=== PATIENT | female | born 1995 | race Caucasian/White ===

== ENCOUNTER 2020-12-27 18:24 | Emergency (ER) | payer OTHER, SELFPAY ==
[2020-12-27 18:32] VITALS: BP 133/80; PULSE 82; RESP 12; TEMP 36.7; O2SAT 100
--- NOTE | 2020-12-27 18:35 | ED.FEMALEGU ---
HPI - Female Genitourinary General Chief complaint: Urogenital-Female Stated complaint: UTI Source: patient Mode of arrival: ambulatory Limitations: no limitations History of Present Illness HPI Narrative: Patient is a 25 year old female who presents with complaints of UTI. She reports dysuria, frequency and urgency x1 day. She reports history of UTI in the past. Patient has no other significant medical history. She denies taking any wdpq-hhl-irwrsyk medications prior to arrival. MD elicited complaint: UTI Related Data Home Medications Medication Instructions Recorded Confirmed Viberzi 12/27/20 citalopram 12/27/20 Allergies Allergy/AdvReac Type Severity Reaction Status Date / Time Sulfa (Sulfonamide Allergy Unknown Verified 12/27/20 18:40 Antibiotics) Review of Systems Review of Systems: Narrative: CONSTITUTIONAL: Denies fever, chills, or sweats. EYES: Denies visual changes, redness, or discharge. ENT: Denies rhinorrhea, congestion, sore throat, or otalgia. CARDIOVASCULAR: Denies chest pain, palpitations, or edema. RESPIRATORY: Denies cough or dyspnea. GASTROINTESTINAL: Denies abdominal pain, nausea, vomiting, or diarrhea. GENITOURINARY: Reports dysuria, urgency and frequency SKIN: Denies rash or itching. MUSCULOSKELETAL: Denies back pain, joint pain, or myalgia. NEUROLOGIC: Denies headache, numbness, dizziness, or weakness. PSYCHIATRIC: Denies anxiety or depression. [facility] Past Medical History Medical History Anxiety Depression Social History Social History (Updated 12/27/20 @ 19:48 by JUANY Umaña) Smoking status: Never smoker Alcohol intake: current Alcohol use details: Occasional Substance use: never Living arrangements: with family Comments At the time of signature, I have reviewed and agree with nursing past medical, surgical, social, and family history unless otherwise noted. Please see nursing chart for further information. There is no relevant family history pertinent to the presenting complaint. Exam Narrative: Exam Narrative: GENERAL: Well-appearing, well-nourished, and in no acute distress. HEAD: Normocephalic, atraumatic. EYES: EOMI. No redness or drainage. Conjunctiva are normal. ENT: Mucous membranes pink and moist. CHEST: No respiratory distress. HEART: Regular rate and rhythm. EXTREMITIES: Normal range of motion. No edema. SKIN: Warm, dry, no rash. NEURO: No focal deficits. Alert and oriented x3. Gait steady. PSYCH: Normal affect. No signs of depression or anxiety. MDM - Female Genitourinary MDM Narrative Medical decision making narrative: Patient is afebrile nontoxic in appearance. Patient has blood and leukocytes in urine. Patient to be treated for UTI at this time with antibiotics. Discussed plan of care with patient. Discussed follow-up. Patient is stable for discharge home with outpatient follow-up as discussed. Differential Diagnosis Differential diagnosis: Likely urinary tract infection, bacterial vaginosis, vaginitis, cystitis and dysmenorrhea Critical Care Time Critical Care Time Critical Care Time: No Discharge Plan Discharge Clinical Impression: Urinary tract infection Qualifiers: Urinary tract infection type: site unspecified Hematuria presence: with hematuria Qualified Code(s): N39.0 - Urinary tract infection, site not specified Patient Disposition: Home, Self-Care Condition: Stable Instructions: Antibiotic Form, Urinary Tract Infection in Women (ED) Additional Instructions: Take antibiotics as directed. Stay well-hydrated. If you develop fever, chills, nausea, vomiting or abdominal pain, please go to the emergency department for further evaluation, otherwise follow-up with your doctor in 5 to 7 days as needed. Prescriptions: New nitrofurantoin macrocrystal 100 mg capsule 100 mg PO BID 5 Days Qty: 10 RF: 5 No Action Suha RF:
== END 2020-12-27 18:57 | disposition home or self-care (01) ==
PROVIDERS: Emergency Provider Nurse Practitioner; PCP Physician Assistant
DX: N39.0 Urinary tract infection, site not specified (principal)
CPT/HCPCS: 81003; 87077; 87086; 87088; 87186; 99213; G0463

== ENCOUNTER 2021-05-26 18:35 | Emergency (ER) | payer OTHER, SELFPAY ==
--- NOTE | 2021-05-26 18:41 | ED.FEMALEGU ---
HPI - Female Genitourinary General Chief complaint: Urogenital-Female Stated complaint: pos uti Time Seen by Provider: 05/26/21 18:41 Source: patient and RN notes reviewed Mode of arrival: ambulatory Limitations: no limitations History of Present Illness HPI Narrative: narda is a 25 year old female who ambulated into [facility]. Patient states she had a telehealth visit 2 weeks ago for a UTI. She was treated with Macrobid for 5 days. Patient states doctor wanted her to be seen for a urinalysis to make sure infection is gone. She states she has had 2 UTI's this year. She states she has some urinary urgency.. She took entire course of antibiotics. MD elicited complaint: dysuria Related Data Home Medications Medication Instructions Recorded Confirmed L norgest/e.estradiol-e.estrad 1 tablet PO DAILY 05/26/21 05/26/21 [Simpesse] citalopram 10 mg PO DAILY 05/26/21 05/26/21 citalopram 20 mg PO DAILY 05/26/21 05/26/21 eluxadoline [Viberzi] 100 mg PO DAILY 05/26/21 05/26/21 Allergies Allergy/AdvReac Type Severity Reaction Status Date / Time Sulfa (Sulfonamide Allergy Unknown Verified 05/26/21 18:44 Antibiotics) Review of Systems Review of Systems: CONSTITUTIONAL: Denies body aches, fever, chills, or sweats. EYES: Denies visual changes, redness, or discharge. ENT: Denies rhinorrhea, congestion, sore throat, or otalgia. CARDIOVASCULAR: Denies chest pain, palpitations, or edema. RESPIRATORY: Denies cough or dyspnea. GASTROINTESTINAL: Denies abdominal pain, nausea, vomiting, or diarrhea. GENITOURINARY: Denies dysuria or hematuria.+urgency SKIN: Denies rash, itching, or wounds. MUSCULOSKELETAL: Denies back pain, joint pain, or myalgia. NEUROLOGIC: Denies headache, numbness, tingling, or weakness. PSYCH: Denies depression or anxiety. All systems reviewed & are unremarkable except as noted in HPI and below PMFSH Past Medical History Medical History Anxiety Depression Social History Social History Smoking status: Never smoker Alcohol intake: current Alcohol use details: Occasional Substance use: never Comments At time of signature, I have reviewed and agree with nursing past medical, surgical, social and family history unless otherwise noted. Please see nursing chart for further information. There is no relevant family history pertinent to the presenting complaint Exam Narrative: GENERAL: Well-appearing, well-nourished, and in no acute distress. HEAD: Normocephalic, atraumatic. EYES: EOMI. No redness or drainage. Conjunctivae normal. ENT: Mucous membranes pink and moist. Nares clear. No rhinorrhea. TMs normal bilaterally. Throat normal. Uvula midline. NECK: Normal AROM. Supple. No lymphadenopathy. CHEST: No respiratory distress. MUSCULOSKELETAL: No bony tenderness. negative CVA tenderness EXTREMITIES: Normal range of motion. No edema. SKIN: Warm, dry, no rash. Capillary refill normal. Normal skin turgor. NEURO: No focal deficits. Alert and oriented x3. Gait steady. PSYCH: Normal affect. No signs of depression or anxiety. Course Vital Signs Vital signs: Vital Signs Temperature 36.8 C 05/26/21 18:43 Pulse Rate 84 05/26/21 18:43 Respiratory Rate 16 05/26/21 18:43 Blood Pressure 123/81 05/26/21 18:43 Pulse Oximetry 100 05/26/21 18:43 Temperature 36.8 C 05/26/21 18:44 Pulse Rate 84 05/26/21 18:44 Respiratory Rate 16 05/26/21 18:44 Blood Pressure 123/81 05/26/21 18:44 Pulse Oximetry 100 05/26/21 18:44 Reviewed MDM - Female Genitourinary MDM Narrative Medical decision making narrative: Patient's urinalysis shows trace leukocytes and trace blood. Patient had prior therapy 2 weeks ago of Macrobid 100 mg daily for 5 days. Patient continues to have urinary urgency. Patient will be treated with Cipro 500 mg twice daily for 7 days base
[2021-05-26 18:43] VITALS: BP 123/81; PULSE 84; RESP 16; TEMP 36.8; O2SAT 100
[2021-05-26 18:44] VITALS: BP 123/81; PULSE 84; RESP 16; TEMP 36.8; O2SAT 100
== END 2021-05-26 19:02 | disposition home or self-care (01) ==
PROVIDERS: Emergency Provider Nurse Practitioner Family; PCP Physician Assistant
DX: N39.0 Urinary tract infection, site not specified (principal); F41.9 Anxiety disorder, unspecified; F32.A Depression, unspecified
CPT/HCPCS: 81003; 87086; 87088; 99213; G0463

== ENCOUNTER 2022-10-17 08:11 | Outpatient (CLI) | payer OTHER, SELFPAY ==
--- NOTE | ~2022-10-17 | US_ITS ---
Thyroid ultrasound. Clinical History: Goiter Findings: Real-time sonography of the thyroid gland was performed. The right lobe measures 4.3 x 1.7 x 1.5 cm. The left lobe measures 3.7 x 1.5 x 1.1 cm. The isthmus is 2 mm in AP diameter. There is a 9 mm hyperechoic solid nodule at the right midpole. Impression: 9 mm hyperechoic right midpole nodule. No further follow-up required. Reviewed, dictated and finalized at location . Impression: 9 mm hyperechoic right midpole nodule. No further follow-up required.
== END 2022-10-17 08:12 | disposition home or self-care (01) ==
PROVIDERS: PCP Physician Assistant; Visit Provider Internal Medicine Endocrinology, Diabetes & Metabolism
DX: E04.9 Nontoxic goiter, unspecified (principal)
CPT/HCPCS: 76536

== ENCOUNTER 2023-01-26 15:10 | Emergency (ER) | payer OTHER, SELFPAY ==
[2023-01-26] VITALS (14 sets, daily range): BP systolic 104–135; BP diastolic 62–85; PULSE 62–102; RESP 11–24; TEMP 36.3; O2SAT 99–100
--- NOTE | 2023-01-26 19:01 | ED.HA ---
HPI - Headache General Chief Complaint: Headache Stated Complaint: headache Time Seen by Provider: 01/26/23 18:56 Source: patient Mode of arrival: ambulatory Limitations: no limitations History of Present Illness HPI Narrative: Patient is a 27-year-old female who presents ED with report of headache. Patient reports having a constant mild headache for the last 2 weeks. She states at times it becomes worse and becomes better. Denies any known triggers or aggravating factors to the pain. She was seen at an urgent care yesterday and told to take Tylenol and naproxen and come to the ED if pain was still present in the morning. Patient has not tried anything further for the pain today. Patient denies any nausea, vomiting, photophobia, phonophobia, fevers, dizziness, lightheadedness, focal weakness or numbness. Patient denies known history of migraines. Related Data Home Medications Medication Instructions Recorded Confirmed citalopram 10 mg tablet 10 mg PO DAILY 05/26/21 02/21/22 citalopram 20 mg tablet 20 mg PO DAILY 05/26/21 02/21/22 Allergies Allergy/AdvReac Type Severity Reaction Status Date / Time Sulfa (Sulfonamide Allergy Unknown Verified 01/26/23 19:04 Antibiotics) Review of Systems Review of Systems: CONSTITUTIONAL: Denies fever, chills, or sweats. EYES: Denies visual changes. CARDIOVASCULAR: Denies chest pain. RESPIRATORY: Denies dyspnea. GASTROINTESTINAL: Denies abdominal pain, nausea, vomiting. MUSCULOSKELETAL: Denies back pain, joint pain, or myalgia. NEUROLOGIC: See HPI. 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 HEAD: Normocephalic, atraumatic. EYES: PERRL/EOMI, conjunctivae clear bilaterally. No nystagmus. NECK: Supple. No adenopathy, no masses. No meningeal signs. RESPIRATORY: Airway patent, respirations nonlabored. Clear to auscultation bilaterally, no rales, rhonchi, wheezing. CARDIOVASCULAR: Regular rate and rhythm without murmurs, rubs, or gallops. Radial pulses 2+ and equal bilaterally. MUSCULOSKELETAL: Moves all extremities. Strength/ROM intact without gross deformities or TTP. SKIN: Warm, dry, normal color. No rashes. NEURO: A&O X3. Speech clear. Follows commands. CN II-XII intact. Sensation grossly intact. Steady gait. No ataxic movements. Strength 5/5 in upper and lower extremities bilaterally. Nvbm-xv-xkwd. No pronator drift. Equal photographic equipment assembler strength bilaterally. PSYCHIATRIC: Appropriate mood and affect. Normal interaction. Course Vital Signs Vital signs: Vital Signs Temperature 97.3 F L 01/26/23 15:14 Pulse Rate 102 H 01/26/23 15:14 Respiratory Rate 16 01/26/23 15:14 Blood Pressure 135/85 01/26/23 15:14 Pulse Oximetry 100 01/26/23 15:14 Oxygen Delivery Room Air 01/26/23 15:14 Temperature 97.3 F L 01/26/23 15:14 Pulse Rate 65 01/26/23 21:08 Respiratory Rate 18 01/26/23 21:08 Blood Pressure 117/81 01/26/23 21:08 Pulse Oximetry 99 01/26/23 21:08 Oxygen Delivery Room A
[2023-01-26] MEDS: SODIUM CHLORIDE 0.9% IV 1,000 ML 999 ML IV CONT (19:45)
[2023-01-26] MEDS: diphenhydrAMINE HCl INJ 50 MG/ML VIAL 25 MG IV PUSH (19:47)
[2023-01-26] MEDS: KETOROLAC 30 MG/ML VIAL (*BKC) IV PUSH (19:47)
[2023-01-26] MEDS: METOCLOPRAMIDE HCL INJ 10 MG/2 ML VIAL IV PUSH (19:48)
[2023-01-26] MEDS: ACETAMINOPHEN 500 MG TABLET 1000 MG PO (19:53)
== END 2023-01-26 21:11 | disposition home or self-care (01) ==
PROVIDERS: Emergency Provider Physician Assistant; PCP Physician Assistant
DX: G43.909 Migraine, unspecified, not intractable, without status migrainosus (principal); K58.9 Irritable bowel syndrome, unspecified; E28.2 Polycystic ovarian syndrome; F41.9 Anxiety disorder, unspecified; F32.A Depression, unspecified
CPT/HCPCS: 81025; 96361; 96374; 96375; 99284; A9270; J1100; J1200; J1885; J2765; J7030

== ENCOUNTER 2023-03-21 13:28 | Outpatient (CLI) | payer OTHER, SELFPAY ==
--- NOTE | ~2023-03-21 | US_ITS ---
US breast LT limited INDICATION: Palpable left breast lump TECHNIQUE: Dedicated Limited left breast ultrasound COMPARISON: No prior studies for comparison. FINDINGS: The left breast is composed of normal heterogeneous echotexture without focal solid or cyst ic mass. IMPRESSION: 1: Normal left breast ultrasound. BI-RADS CATEGORY 1 - NEGATIVE Reviewed, dictated and finalized at location A.
== END 2023-03-21 13:29 | disposition home or self-care (01) ==
PROVIDERS: Visit Provider Obstetrics & Gynecology
DX: N63.25 Unspecified lump in the left breast, overlapping quadrants (principal)
CPT/HCPCS: 76642

== ENCOUNTER 2024-02-10 08:06 | Outpatient (CLI) | payer OTHER, SELFPAY ==
[2024-02-10 08:31] LABS: Glucose Point of Care 98 mg/dl (65-105)
[2024-02-10 15:44] LABS: Glucose 3 Hour Gest 116 mg/dL (>/=140)
[2024-02-10 15:44] LABS: Glucose 1 Hour Gest 127 mg/dL (>/=180)
[2024-02-10 15:44] LABS: Glucose 2 Hour Gest 117 mg/dL (>/= 155)
== END 2024-02-10 08:07 | disposition home or self-care (01) ==
LOC: ANHGOSHLAB 08:07
PROVIDERS: PCP Physician Assistant; Visit Provider Obstetrics & Gynecology
DX: R73.09 Other abnormal glucose (principal)
CPT/HCPCS: 36415; 82948; 82951; 82952

== ENCOUNTER 2024-02-28 09:03 | Observation (INO) | payer OTHER, SELFPAY ==
[2024-02-28] VITALS (7 sets, daily range): BP systolic 112–121; BP diastolic 64–77; PULSE 67–87; BMI 47.3
--- NOTE | ~2024-02-28 | US_ITS ---
EXAMINATION: US OB limited w BPP DATE: 02/28/2024 11:29 INDICATION: Status post fall on abdomen TECHNIQUE: Real-time pelvic ultrasound was performed. The interpreting radiologist was not present fo r the study. COMPARISON: None. FINDINGS: There is a single living fetus in vertex presentation. The placenta is anterior. cardiac activ ity and movement are demonstrated. heart rate is beats per minute (bpm). Biophysical profile performed by the technologist: breathing (30 sec sustained breathing in 30 minutes): 2 out of 2 movement (3 gross body movements in 30 minutes): 2 out of 2 tone (one episode of ncttvwl-njlxwzcbs-wchtplk limb movement): 2 out of 2 Amniotic fluid pocket (2 cm): 2 out of 2 Total score: 8 out of 8 IMPRESSION: 1. Single living intrauterine in vertex presentation with heart rate of 141 bpm. 2. Normal placenta. 3. Biophysical profile 8 out of 8. Reviewed, dictated and finalized at location B.
--- NOTE | 2024-02-28 09:31 | OBADM ---
This patient, Barbara Madera, admitted to the OB room 112 for observation after a fall. Patient/family oriented to hospital policies and general routines including ID bracelet, bed and alarms, visiting hours, pain management, procedures, bathroom and other care routines, personal items, smoking policy, room service/diet, and visiting hours. Patient/Family are encouraged to report perceived risks to care and to ask questions if they do not understand what they are told or what they should do.
--- NOTE | 2024-02-28 17:31 | PC.NURSE ---
1635--Reported labs, BPP and tracing to Dr. Lundy. DC orders given.
--- NOTE | 2024-03-30 09:56 | PM.OBTRLD ---
OB - Triage/Final Diagnosis Visit Information Comments/Additional reasons for admission: I have assessed the risk for this patient, Barbara Madera, and determined that she would benefit from observation care. Evaluation Laboratory results: Laboratory Tests 02/28/24 11:39 KB Hemoglobin Negative Comments: No abdominal trauma with fall. Final Diagnosis (1) Status post fall: Code(s): Z91.81 - History of falling Status: Acute
== END 2024-02-28 16:45 | disposition home or self-care (01) ==
PROVIDERS: Admitting Provider Obstetrics & Gynecology; PCP Physician Assistant; Visit Provider Obstetrics & Gynecology
DX: Z04.3 Encounter for examination and observation following other accident (principal); Z3A.31 31 weeks gestation of pregnancy; W19.XXXA Unspecified fall, initial encounter
CPT/HCPCS: 36415; 76815; 76819; 85460; G0378; G0379

== ENCOUNTER 2024-04-09 10:53 | Outpatient (CLI) | payer OTHER, SELFPAY ==
[2024-04-09] VITALS (10 sets, daily range): BP systolic 114–132; BP diastolic 63–78; PULSE 62–80; BMI 47.3
[2024-04-09 12:09] LABS: Basophils Percent Auto 0.4 % (0.2-1.2); Eosinophils Absolute Auto 0.1 K/mm3 (0-0.3); Eosinophils Percent Auto 0.7 % (0-4.4); Hematocrit 40.9 % (37.0-47.0); Hemoglobin 13.5 g/dL (12.0-15.0); Immature Granulocyte Absolute 0.07 K/mm3 (0.00-0.031); Immature Granulocyte Percent A 0.6 % (0-0.5); Lymphocytes Absolute Auto 1.37 K/mm3 (0.9-3.2); Lymphocytes Percent Auto 12.7 % (18.3-44.2); Mean Corpuscular Hemoglobin 29.6 pg (26-34); Mean Corpuscular Volume 89.7 fl (80-100); Mean Platelet Volume 9.7 fl (7.4-10.4); Monocytes Absolute Auto 0.7 K/mm3 (0.1-0.6); Monocytes Percent Auto 6.8 % (2.6-8.5); Neutrophils Absolute Auto 8.5 K/mm3 (1.3-6.7); Neutrophils Percent Auto 78.8 % (45.5-73.1); Platelet Count Result 229 k/mm3 (150-375); Red Blood Count 4.56 M/mm3 (4.2-5.4); Red Cell Distribution Width 13.8 % (11.5-14.5); White Blood Count 10.8 K/mm3 (4.5-10.0)
[2024-04-09 12:13] LABS: Add Urine Microscopic? YES; Appearance Urine Turbid (Clear); Bacteria Urine 2+ /hpf; Bilirubin Urine 1+ (Negative); Blood Urine Negative (Negative); Color Urine Dark Yellow (Yellow); Glucose Urine UA Negative (Negative); Ketones Urine Trace mg/dL (Negative); Leukocyte Esterase Ur 3+ LEU/UL (Negative); Nitrate Urine Negative (Negative); Protein Urine Trace mg/dL (Negative); Specific Grav Ur 1.025 (1.001-1.035); Squamous Epithelial Cell Urine Many /hpf (Few); Urobilinogen Urine 0.2 mg/dL (<2.0); WBC Urine 51-100 /hpf (0-3); pH Urine 5.5 (5.0-9.0)
[2024-04-09 12:19] LABS: Creatinine Urine 227.1 mg/dL
[2024-04-09 12:19] LABS: Alanine Aminotransferase 11 U/L (6-35); Albumin Level 3.6 g/dL (3.5-5.1); Alkaline Phosphatase 143 U/L (38-126); Anion Gap 9 mmol/L (4-12); Aspartate Amino Transferase 20 U/L (14-36); Bilirubin,Total 0.3 mg/dL (0.2-1.3); Blood Urea Nitrogen 7 mg/dL (7-17); Calcium 9.2 mg/dL (8.4-10.2); Carbon Dioxide 20 mmol/L (22-30); Chloride 104 mmol/L (98-107); Estimated Glomerular Filt Rate > 60; Glucose 75 mg/dL (65-110); Potassium 3.9 mmol/L (3.4-5.0); Sodium 133 mmol/L (137-145); Uric Acid 5.1 mg/dL (2.5-7.5)
[2024-04-09 12:38] LABS: Total Protein Urine Random < 5 mg/dL
[2024-04-09 12:39] LABS: Ur Ttl Prot Creatinine Ratio < 0.02 mg/mg (0-0.20)
--- NOTE | 2024-04-09 12:50 | PC.NURSE ---
Called Dr. Mcgee with lab results, and BPs. Orders received.
== END 2024-04-09 13:22 | disposition home or self-care (01) ==
LOC: ANHOBOP 11:10 → ANHOBPP 11:10
PROVIDERS: Visit Provider Obstetrics & Gynecology
DX: O13.9 Gestational [pregnancy-induced] hypertension without significant proteinuria, unspecified trimester (principal); Z3A.00 Weeks of gestation of pregnancy not specified
CPT/HCPCS: 36415; 59025; 80053; 81001; 82570; 84156; 84550; 85025; 87086; 99199

== ENCOUNTER 2024-04-22 17:08 | Inpatient (IN) | payer OTHER, SELFPAY ==
[2024-04-22] VITALS (10 sets, daily range): BP systolic 103–129; BP diastolic 71–91; PULSE 82–104; TEMP 36.4–36.6; BMI 47.3; BMI 48.0
--- NOTE | 2024-04-22 18:00 | WPDANESEPP ---
Anes - Eval Pre Procedure Procedure: labor epidural Date/Time: 04/22/24 18:00 Surgeon: dangelo Preop Diagnosis: pain during labor Pre Op Diagnosis: IOL Patient Data Age: 28 Gender: F Height: 1.68 m Weight: 133 kg Allergies Allergy/AdvReac Type Severity Reaction Status Date / Time Sulfa (Sulfonamide Allergy Unknown Verified 04/16/24 10:03 Antibiotics) Home Medications Medication Instructions Recorded Confirmed Type citalopram 10 mg tablet 10 mg PO DAILY 05/26/21 04/16/24 History citalopram 20 mg tablet 20 mg PO DAILY 05/26/21 04/16/24 History levothyroxine 62.5 mcg capsule 62.5 mcg PO DAILY #90 caps 02/06/24 04/16/24 Rx aspirin 81 mg chewable tablet 81 mg PO DAILY 03/19/24 04/16/24 History vits no.124-ferrous fum 1 tablet PO DAILY 03/19/24 04/16/24 History 27 mg iron-folic acid 800 mcg tablet ( Vitamin) cholecalciferol (vitamin D3) 125 125 mcg PO DAILY 03/31/24 04/16/24 History mcg (5,000 unit) tablet (Vitamin D3) Patient hx anesthesia problems: none Family hx anesthesia problems: none Results Review: All pre-operative results and documents have been reviewed as part of the pre-operative evaluation. [facility], LAT[facility] Past Medical History Medical History (Updated 04/22/24 @ 18:01 by Stacy Singh CRNA) Anxiety Colonoscopy planned Depression History of hysterosalpingogram History of IBS History of PCOS Morbid obesity with BMI of 45.0-49.9, adult Normal endoscopy Family History Family History Grandparent Diabetes mellitus Malignant neoplasm of prostate Mother Crohn's disease Social History Social History Smoking status: Never smoker Alcohol intake: never Substance use: never Substance use type: does not use Do You Feel Safe in your Home?: Yes Lack of Transportation: No Lack of Food: Never True Current Housing: I Have Housing Concerned About Future Housing: No Difficulty Paying Gas/Electric Bills: No Difficulty Paying for Meds: No Currently Unemployed: No Education: Master's Degree or Higher Difficulty w/ Childcare or Family Care: No Living arrangements: with family Occupation/Education: occupation 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
--- NOTE | 2024-04-22 18:27 | LDADM ---
This patient, Barbara Madera, was admitted to Labor/Delivery/Recovery 108 on 04/22/24 at 17:08. Plans for labor, pain management and were discussed with patient. Patient/family oriented to hospital policies and general routines including ID bracelet, bed and alarms, visiting hours, pain management, procedures, bathroom and other care routines, personal items, smoking policy, room service/diet and guest tray routines, security routines, and visiting hours. Patient/Family are encouraged to report perceived risks to care and to ask questions if they do not understand what they are told or what they should do. See OBIX for further documentation.
[2024-04-22] MEDS: DINOPROSTONE 10 MG VAG INSERT VAGINAL (19:06)
[2024-04-22 19:13] LABS: Basophils Percent Auto 0.2 % (0.2-1.2); Eosinophils Absolute Auto 0.1 K/mm3 (0-0.3); Hematocrit 40.6 % (37.0-47.0); Hemoglobin 13.7 g/dL (12.0-15.0); Immature Granulocyte Absolute 0.07 K/mm3 (0.00-0.031); Immature Granulocyte Percent A 0.7 % (0-0.5); Lymphocytes Absolute Auto 1.76 K/mm3 (0.9-3.2); Lymphocytes Percent Auto 18.2 % (18.3-44.2); Mean Corpuscular HGB Conc 33.7 g/dl (32-36); Mean Corpuscular Hemoglobin 30.4 pg (26-34); Mean Platelet Volume 10.1 fl (7.4-10.4); Monocytes Absolute Auto 0.8 K/mm3 (0.1-0.6); Neutrophils Percent Auto 71.9 % (45.5-73.1); Platelet Count Result 255 k/mm3 (150-375); Red Blood Count 4.51 M/mm3 (4.2-5.4); Red Cell Distribution Width 13.8 % (11.5-14.5); White Blood Count 9.7 K/mm3 (4.5-10.0)
[2024-04-22 20:00] LABS: Rapid Plasma Reagin Non-Reactive (NonReactive)
[2024-04-22 20:06] LABS: HIV 1/2 Ab P24 Ag Result Negative (Negative)
[2024-04-23] VITALS (175 sets, daily range): BP systolic 105–153; BP diastolic 60–114; PULSE 55–126; RESP 18; TEMP 36.3–37.8; O2SAT 83–100
[2024-04-23] MEDS: LACTATED RINGERS 1,000 ML 125 ML IV CONT ×3 (07:31→11:23)
[2024-04-23] MEDS: OXYTOCIN 30 UNITS/NS 500 ML 30 UNITS/500 ML BAG 6 UNITS IV CONT (07:31)
--- NOTE | 2024-04-23 07:31 | PM.IMHP ---
H&P: HPI History of Present Illness Date/Time: 04/23/24 07:15 Chief Complaint: induction of labor Narrative: Barbara is a 28yo @ 39.0wks who presents for elective IOL. She reports good movement. No vaginal bleeding or leakage of fluid. She has had regular care with co-management with [facility]. Her is complicated by: - Obesity--- (pre preg BMI 47), early glucose normal, MFM for anatomy, ASA 81mg - Hypothyroidism--- Levo 50mcg, thyroid studies qTrimester - Anxiety/depression-- celexa 30mg - Elevated 1 hour; normal 3 hour Review of Systems Constitutional: Constitutional: Denies chills, Denies fever(s) and Denies headache(s) Eyes: Eyes: Denies change in vision ENT: Denies headache(s) Cardiovascular: Cardiovascular: Denies chest pain and Denies dyspnea Respiratory: Respiratory: Denies dyspnea Genitourinary: Genitourinary: Denies abnormal vaginal bleeding and Denies vaginal discharge Neurologic: Denies headache(s) Psychiatric: Psychiatric: Denies anxiety and Denies depression [facility] Past Medical History Medical History (Updated 04/22/24 @ 20:35 by Karen Mcgee MD) Anxiety Colonoscopy planned Depression History of hysterosalpingogram History of IBS History of PCOS Morbid obesity with BMI of 45.0-49.9, adult Normal endoscopy Family History Family History Grandparent Diabetes mellitus Malignant neoplasm of prostate Mother Crohn's disease Social History Social History Smoking status: Never smoker Alcohol intake: never Substance use: never Substance use type: does not use Do You Feel Safe in your Home?: Yes Lack of Transportation: No Lack of Food: Never True Current Housing: I Have Housing Concerned About Future Housing: No Difficulty Paying Gas/Electric Bills: No Difficulty Paying for Meds: No Currently Unemployed: No Education: Master's Degree or Higher Difficulty w/ Childcare or Family Care: No Living arrangements: with family Occupation/Education: occupation 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 Gender identity (if verbalized by the patient): Female Sexual Orientation (if Verbalized by the Patient): Straight or Heterosexual Spiritual care concerns: No Meds Home Medications and Allergies Home Medications Medication Instructions Recorded Confirmed Type citalopram 10 mg tablet 10 mg PO DAILY 05/26/21 04/16/24 History citalopram 20 mg tablet 20 mg PO DAILY 05/26/21 04/16/24 History levothyroxine 62.5 mcg capsule 62.5 mcg PO DAILY #90 caps 02/06/24 04/16/24 Rx aspirin 81 mg chewable tablet 81 mg PO DAILY 03/19/24 04/16/24 History vits no.124-ferrous fum 1 tablet PO DAILY 03/19/24 04/16/24 History 27 mg iron-folic acid 800 mcg tablet ( Vitamin) cholecalciferol (vitamin D3) 125 125 mcg PO DAILY 03/31/24 04/16/24 History mcg (5,000 unit) tablet (Vitamin D3) Allergies Allergy/AdvReac Type Severity Reaction Status Date / Time Sulfa (Sulfonamide Allergy Unknown Verified 04/16/24 10:03 Antibiotics) Vital Signs Vital Signs - 24 hr 04/22/24 19:31 04/22/24 19:46 04/22/24 20:01 Pulse Rate 97 101 H 104 H Blood Pressure 117/90 108/86 112/87 04/22/24 20:17 04/22/24 20:31 Pulse Rate 101 H 97 Blood Pressure 103/81 115/87 Exam Const: General: cooperative, no acute distress and obese Nutritional Appearance: obese Orientation/consciousness: patient oriented x3 Resp: Effort & Inspection: normal respiratory effort Cardio: Rate: regular rate GI: GI Palp: No abdominal tenderness : Other: FHT's: 130's/ mod tatiana/ + accels/ no decels - cat 1 TOCO: ctxs q_min Cervix: 3/70/-2, ant Membranes: AROM, clear 0725 Presentation: cephalic Skin: General skin exam: normal color Neuro: General: patient oriented x3 Extrem: General: normal to inspec
[2024-04-23] MEDS: OXYTOCIN 30 UNITS/NS 500 ML 30 UNITS/500 ML BAG 125 UNITS IV CONT (13:47)
--- NOTE | 2024-04-23 13:56 | PM.OBPRVD ---
OB - Vaginal Delivery Note Procedure Delivery date: 04/23/24 Events: Elective Induction of Labor Induction method: Per Cervidil Protocol Delivery augmentation: Rupture of Membranes and Pitocin Delivery monitor: External FHT and Internal Uterine Route of delivery: Episiotomy description: None Laceration Description: Perineal - 2nd Degree Delivery repair: vicryl Quantitative Blood Loss (ml): 350 Anesthesia type: Epidural Disposition: Floor Complications: No immediate complications [place] Baby Date of : 04/23/24 Time of : 13:24 Gestational Age by Date: 39 (.1) Infant gender: Male presentation: compound (vertex with left hand by face) Placenta delivery description: Expressed Cord Vessel Description: 3 Vessels and Delayed Cord Clamping score one minute: 8 score five minutes: 9 Narrative: Barbara rapidly progressed to complete dilation with strong desire to push. She pushed for approximately 20 minutes with good maternal effort. She delivered the head over intact perineum in compound presentation with his left hand by his face. He was immediately placed skin to skin and stimulated by the pediatric nurses. Cry was then heard. Delayed cord clamping was performed. The umbilical cord was then doubly clamped and cut. A segment of cord was collected for cord gases. The remaining cord blood was collected for typing. With Pitocin running and gentle downward traction on the cord, the placenta delivered without complication. Bimanual massage was performed and good uterine tone with minimal bleeding was noted. She was examined and a second-degree perineal laceration was identified the second-degree perineal laceration was repaired and the normal fashion using 2-0 Vicryl. The laceration was then found to be hemostatic. Bimanual massage was once again performed and good uterine tone with minimal bleeding was noted. Sponge, lap, instrument, and needle counts were correct at the end of the procedure. Mom and baby were left bonding in the birthing suite in a stable condition. But approximally 2 hours after delivery though additional bleeding was noted and approximately 450 cc of blood and clots were removed and she was given and Cytotec 100 mcg which was placed rectally and good uterine tone was then noted with minimal bleeding. Her vitals remained stable.
[2024-04-23] MEDS: miSOPROStol 200 MCG TABLET 800 MCG (15:59)
--- NOTE | 2024-04-23 17:59 | PC.NURSE ---
1740 pt up to bathroom, pads changed, gown changes. ambulated with assistance. epidural line removed blue tip intact. report given to nurse. Pt transported to via wheelchair with baby, dad, and mother with personal belongings. pt helped to bed. nurse bedside 1750.
--- NOTE | 2024-04-23 18:06 | PC.NURSE ---
1802. Met with patient to assess and discuss needs related to feeding. Mother states it is her intention to exclusively breastfeed. Mother reports that she was able to latch infant after delivery for a short time. Encouraged mother to breastfeed infant 8-12 times in 24 hours (approximately every 2-3 hours), watching for early feeding cues. If is sleepy, unwrap and place baby skin to skin. Discussed signs that is effectively , i.e. sufficient voids and stools, jaundice within normal limits, <10% weight loss from . Mother educated on milk production, supply and demand, and expectations for in the immediate period. Attempted to latch to the right breast in cross cradle position. Infant with some interest in latching but did not maintain the latch and begin suckling. mom encouraged to continue with s2s and watch for infants early feeding cues and attempt to relatch infant. Mother verbalizes understanding as well as understands she can call out for assistance getting to latch if needed. Encouraged feeding on demand and feeding durations of 15 minutes or greater. Discussed breast/nipple care with good hand hygiene, signs of a correct latch, listening for infant swallows and documenting feedings on the feeding sheet. Mother instructed to call for assistance if will not feed every 3 hours, if there is discomfort with , or if mother has any other questions or concerns. resources provided including the Mom and Baby Guide and name/number on communication board. Mother verbalized understanding. Updated patient?s primary RN with education provided.?
[2024-04-23] MEDS: IBUPROFEN 600 MG TABLET PO (20:18)
[2024-04-24 04:10] VITALS: BP 106/60; PULSE 67; RESP 18; TEMP 37.5; O2SAT 100
[2024-04-24] MEDS: IBUPROFEN 600 MG TABLET PO (04:14)
[2024-04-24 04:59] LABS: Hematocrit 33.5 % (37.0-47.0); Hemoglobin 11.2 g/dL (12.0-15.0); Mean Corpuscular HGB Conc 33.4 g/dl (32-36); Mean Corpuscular Hemoglobin 30.3 pg (26-34); Mean Corpuscular Volume 90.5 fl (80-100); Mean Platelet Volume 10.3 fl (7.4-10.4); Platelet Count Result 195 k/mm3 (150-375); Red Cell Distribution Width 13.7 % (11.5-14.5); White Blood Count 11.6 K/mm3 (4.5-10.0)
--- NOTE | 2024-04-24 06:39 | PM.OBPNVD ---
OB - PN: Subj Subjective Date/time seen: 04/24/24 06:39 Narrative: PPD#1 Barbara reports doing well today. Her bleeding is public relations player. Her pain is controlled. She is tolerating regular diet, voiding, passing gas, and ambulating without issues. She is breast feeding. She would like her son circumcised. OB - PN: Obj Data Labs 04/24/24 04:13 Labs: Laboratory Results - last 24 hr 04/24/24 04:13 WBC 11.6 H RBC 3.70 L Hgb 11.2 L Hct 33.5 L MCV 90.5 MCH 30.3 MCHC 33.4 RDW 13.7 Plt Count 195 MPV 10.3 OB - PN A/P Assessment and Plan (1) Normal vaginal delivery of first : Code(s): O80 - Encounter for full-term uncomplicated delivery Status: Acute Plan day: 1 Plan: routine care Comments: - PO pain meds - Regular diet - Ambulation and hydration encouraged - Continue putting baby to breast q2-3hr - Will continue to monitor for any fevers; had 100.1 (suspecting Cytotec, as she was only ruptured for 6 hours) Time Spent With Patient Time: Total time spent is greater than 50% in coordination of care (as documented) at patient's floor/unit and/or counseling patient: Review of Systems Constitutional: Constitutional: Denies chills, Denies fever(s) and Denies headache(s) Eyes: Eyes: Denies change in vision ENT: Denies dizziness and Denies headache(s) Cardiovascular: Cardiovascular: Denies chest pain, Denies palpitations and Denies dyspnea Respiratory: Respiratory: Denies cough and Denies dyspnea Gastrointestinal: Gastrointestinal: Denies nausea and Denies vomiting Neurologic: Denies dizziness and Denies headache(s) Endocrine: Endocrine: Denies palpitations Exam Const: General: cooperative, comfortable and no acute distress Orientation/consciousness: patient oriented x3 Resp: Effort & Inspection: normal respiratory effort Auscultation: clear to auscultation bilaterally Cardio: Rate: regular rate GI: Inspection: non-distended GI Palp: No abdominal tenderness and Yes Soft to palpation Auscultation: normal bowel sounds : Other: fundus firm Skin: General skin exam: normal color Neuro: General: patient oriented x3 Extrem: General: normal to inspection Psych: Appearance: grossly normal Affect: normal affect Attitude: cooperative
--- NOTE | 2024-04-24 07:08 | WPDANLDPN2 ---
Anes-Prog Note L&D Date/Time: 04/24/24 07:08 Comfortable throughout: labor and delivery Neuraxial method: epidural Epidural/Spinal procedure site: clean & non-tender Neuro status: Neuro function grossly intact. Cardiovascular status: normal Respiratory status: normal Airway patency: baseline Mental status: baseline Post-Op hydration status: normal Vital Signs: Last Vital Signs Temp 37.5 C 04/24/24 04:10 Pulse 67 04/24/24 04:10 Resp 18 04/24/24 04:10 BP 106/60 04/24/24 04:10 Pulse Ox 100 04/24/24 04:10 O2 Del Method Room Air 04/23/24 11:25 Pain score (VAS): 10 I/O: Intake & Output 04/23/24 04/23/24 04/24/24 15:59 23:59 07:59 Intake Total 1999 Output Total 50 455 Balance 1950 -026 Patient feedback: Patient satisfied with anesthetic care.
[2024-04-24 07:50] VITALS: BP 118/78; PULSE 79; RESP 16; TEMP 36.2; O2SAT 99
[2024-04-24] MEDS: DOCUSATE SODIUM 100 MG CAPSULE PO ×2 (11:16→16:26)
[2024-04-24] MEDS: MULTIVIT/MIN/PREN/FOL AC/IRON TABLET 1 TAB PO (11:16)
[2024-04-24 12:07] VITALS: BP 123/68; PULSE 76; RESP 16; TEMP 36.2; O2SAT 99
[2024-04-24 21:24] VITALS: BP 118/64; PULSE 78; RESP 16; TEMP 36.8; O2SAT 99
[2024-04-25 07:40] VITALS: BP 108/66; PULSE 73; RESP 18; TEMP 36.9
[2024-04-25] MEDS: MULTIVIT/MIN/PREN/FOL AC/IRON TABLET 1 TAB PO (07:51)
[2024-04-25] MEDS: ACETAMINOPHEN 325 MG TABLET 650 MG PO (07:51)
[2024-04-25] MEDS: DOCUSATE SODIUM 100 MG CAPSULE PO (07:52)
--- NOTE | 2024-04-25 09:13 | WPDANLDPN2 ---
Anes-Prog Note L&D Date/Time: 04/25/24 09:13 Comfortable throughout: labor and delivery Neuraxial method: epidural Epidural/Spinal procedure site: clean & non-tender Neuro status: Neuro function grossly intact. Cardiovascular status: normal Respiratory status: normal Airway patency: baseline Mental status: baseline Post-Op hydration status: normal Vital Signs: Last Vital Signs Temp 36.8 C 04/24/24 21:24 Pulse 78 04/24/24 21:24 Resp 16 04/24/24 21:24 BP 118/64 04/24/24 21:24 Pulse Ox 99 04/24/24 21:24 O2 Del Method Room Air 04/23/24 11:25 Pain score (VAS): 2/10 I/O: Intake & Output 04/24/24 04/25/24 04/25/24 23:59 07:59 15:59 Intake Total 100 Balance 100 Patient feedback: Patient satisfied with anesthetic care.
--- NOTE | 2024-04-27 09:34 | PM.OBDSVD ---
DS: Admitting Diagnosis Discharge Date 04/25/24 Admitting Diagnosis Induction of labor DS: Discharge Diagnosis Discharge Diagnosis (1) Normal vaginal delivery of first : Code(s): O80 - Encounter for full-term uncomplicated delivery Status: Acute OB - DS: Summary OB Procedures : NST and Ultrasound OB Procedures Intrapartum: Spontaneous Vag Delivery OB Procedures: : None Peripartum Data Infant Delivery Method: Natural Vaginal Laceration Description: Perineal - 2nd Degree Episiotomy description: None complications: none 1: Gender: Male Disposition of : home Status at Discharge Functional status at discharge: independent ambulation Overall status at discharge: patient is back to baseline Time Spent with Patient Time attestation: Total time spent providing and/or coordinating discharge services: Time spent: Less than 30 minutes Exam Const: General: cooperative, comfortable, no acute distress and obese Orientation/consciousness: patient oriented x3 Resp: Effort & Inspection: normal respiratory effort Auscultation: clear to auscultation bilaterally Cardio: Rate: regular rate GI: Inspection: non-distended GI Palp: No abdominal tenderness and Yes Soft to palpation Auscultation: normal bowel sounds : Other: fundus firm Skin: General skin exam: normal color Neuro: General: patient oriented x3 Extrem: General: normal to inspection Psych: Appearance: grossly normal Affect: normal affect Attitude: cooperative Discharge Plan Discharge Consulting providers: Stacy Singh; Bibi Mchugh; Ariane Aguilera Discharging Clinician: Zane Castaneda Anticipated Discharge Date/Time: 04/25/24 09:00 Patient Disposition: Home, Self-Care Activity: may shower and pelvic rest Diet: regular Discharge Instructions: Education: Mom and Baby Guide Given to: Mother Follow-Up: Call your delivering provider's office for an appointment to be seen in: 4 Weeks Mom and baby should come to the [facility] for the follow-up appointment. Appointment Date/Time: April 27, 2024 at 11:00 am What to expect at your follow-up visit: Physical Assessment Call [phone] if you are unable to keep your appointment time. BREAST CARE: * Wear a snug supportive bra. * For engorgement discomfort: Breast Feeding: * Apply warm moist washcloths * Express milk as needed to relieve engorgement * Wear loose clothing * For sore nipples: * Identify correct latch-on * Apply warm moist washcloths before and after nursing * Air dry nipples after nursing * May apply Lansinoh cream to nipples PERINEAL CARE: * Until bleeding stops, use your julio bottle after urinating * Change your pad frequently throughout the day * You may take sitz baths several times a day (fill your bathtub with warm water and soak for 20 minutes.) Do NOT bathe in the water * No tub baths until seen by your physician - You may shower ACTIVITY: * Rest as much as possible. * Do not exercise or lift anything heavier than your baby (such as laundry or other children.) * Avoid stairs or driving as much as possible. * Do not put anything into the vagina. No douching, tampons, or sexual activity until seen by physician. NOTIFY PHYSICIAN IF YOU HAVE ANY QUESTIONS OR IF ANY OF THE FOLLOWING SYMPTOMS OCCUR: * If your perineum becomes red, swollen, or more painful than what you have experienced in the hospital. * If your vaginal bleeding becomes foul smelling. * If your vaginal bleeding becomes more heavy than a period or if your bleeding changes from pink to bright red. However, you may pass an occasional walnut-sized clot once or twice for the first week . * If you experience a sharp, shooting pain in you calves. * If you discover a hard, reddened area on your breast or if you experience flu-like s
[2024-04-27 11:22] VITALS: BP 125/83; PULSE 94; RESP 18; TEMP 37.4; O2SAT 100
== END 2024-04-25 12:10 | disposition home or self-care (01) | DRG 806 ==
LOC: ANHOB2 04-25 11:25 → ANHLDR 04-27 08:53 → ANHOB2 04-27 08:53
PROVIDERS: Admitting Provider Obstetrics & Gynecology; Visit Provider Obstetrics & Gynecology
DX: O32.6XX0 Maternal care for compound presentation, not applicable or unspecified (principal); Z68.42 Body mass index [BMI] 45.0-49.9, adult; Z37.0 Single live birth; Z3A.39 39 weeks gestation of pregnancy; O70.0 First degree perineal laceration during delivery; E66.01 Morbid (severe) obesity due to excess calories; O99.214 Obesity complicating childbirth; O99.284 Endocrine, nutritional and metabolic diseases complicating childbirth; E03.9 Hypothyroidism, unspecified; O99.344 Other mental disorders complicating childbirth; F41.8 Other specified anxiety disorders
CPT/HCPCS: 36415; 85025; 85027; 86592; 86703; 86850; 86900; 86901; A9270; G0432; J2590; J2795; J7120

== ENCOUNTER 2024-04-27 11:30 | Outpatient (CLI) | payer OTHER, SELFPAY ==
[2024-04-27 12:18] LABS: Add Urine Microscopic? YES; Appearance Urine Cloudy (Clear); Bacteria Urine 4+ /hpf; Bilirubin Urine Negative (Negative); Blood Urine 3+ (Negative); Color Urine Yellow (Yellow); Glucose Urine UA Negative (Negative); Ketones Urine 1+ mg/dL (Negative); Leukocyte Esterase Ur 2+ LEU/UL (Negative); Mucus Urine Present /lpf; Need Manual Microscopic Reviewed; Nitrate Urine Positive (Negative); Protein Urine 2+ mg/dL (Negative); RBC Urine >100 /hpf (0-2); Specific Grav Ur 1.029 (1.001-1.035); Squamous Epithelial Cell Urine Occasional /hpf (Few); WBC Urine 51-100 /hpf (0-3); pH Urine 6.5 (5.0-9.0)
== END 2024-04-27 11:31 | disposition home or self-care (01) ==
PROVIDERS: Visit Provider Obstetrics & Gynecology
DX: Z34.90 Encounter for supervision of normal pregnancy, unspecified, unspecified trimester (principal); Z3A.00 Weeks of gestation of pregnancy not specified
CPT/HCPCS: 81001; 87077; 87086; 87186

== ENCOUNTER 2024-09-30 13:03 | Outpatient (CLI) | payer OTHER, SELFPAY ==
[2024-09-30 14:00] LABS: Add Urine Microscopic? YES; Appearance Urine Clear (Clear); Bacteria Urine None Seen /hpf; Bilirubin Urine Negative (Negative); Blood Urine Negative (Negative); Color Urine Yellow (Yellow); Glucose Urine UA Negative (Negative); Ketones Urine Negative (Negative); Leukocyte Esterase Ur 1+ LEU/UL (Negative); Nitrate Urine Negative (Negative); Non Pathogenic Casts 0-2; Protein Urine Negative (Negative); RBC Urine 0-2 /hpf (0-2); Specific Grav Ur 1.017 (1.001-1.035); Squamous Epithelial Cell Urine None Seen /hpf (Few); Urobilinogen Urine 0.2 mg/dL (<2.0); WBC Urine 21-50 /hpf (0-3)
--- OUTSIDE RECORDS SUMMARY | 2024-09-30 14:24 | XMS_ITS | Clinical Summary ---
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 Gender Identity Not on file Sexual Orientation Not on file Plan of Treatment Health Maintenance Due Date Last Done Comments HEPATITIS B VACCINES (1 of 3 - 19+ 3-dose series) 2012 HPV/Cotest (21-29) 2014 CERVICAL CANCER SCREENING 10/31/2023 HPV/Cotest (30-65) 10/31/2023 PAP SMEAR 10/31/2023 INFLUENZA VACCINE (#1) 2024 DTAP/TDAP/TD VACCINES (2 - T d or Tdap) 01/07/2029 01/07/2019 HPV VACCINES Aged Out No longer eligi ble based on patient's age to complete this topic PNEUMOCOCCAL VACCINE 0-49 YEARS Aged Out No longer eligible based on patient's age to complete this topic Insurance [facility] OPEN ACCESS HMO
--- OUTSIDE RECORDS SUMMARY | 2024-09-30 14:25 | XMS_ITS | Clinical Summary ---
Author Organization [facility] Address [address] [place] [address] Care Team Providers Care Melt Helper Name Role Phone Elda Sandoval NP Primary Care Provider [phone] Karen Mcgee MD Unavailable [phone] Allergies Active Allergy Reactions Criticality Noted Date Comments Sulfa (Sulfonamide Antibiotics) Hives Medium 12/29 Medications cholecalciferol 25 mcg (1,000 unit) tablet Take 1 tablet (1,000 Units total) by mouth daily Active 82-[id number]-[id number]-D SS-DHA ORAL Take by mouth Acti ve citalopram (CeleXA) 20 mg tablet Take 1 tablet (20 mg total) by mouth daily 90 tablet 3 5 Active citalopram (CeleXA) 10 mg tablet Take 1 tablet (10 mg total) by mouth daily 90 tablet 3 5 Active Synthroid 50 mcg tablet Take 1 tablet (50 mcg total) by mouth teller head before breakfast 90 tablet 1 5 Active Viberzi 100 mg tablet Take 1 tablet (100 mg total) by mouth 2 (two) times a day with meals 180 tablet 1 5 Active Active Problems Problem Noted Date Diagnosed Date Recurrent major depressive disorder, in full rem ission 02/13/2023 Assessment & Plan (07/07/2024 11:15 AM FRAME FIXER): Stable on current medication. Continue citalopram 30 mg as ordered. May follow up in 6 months Gastroesophageal reflux dise ase with esophagitis without hemorrhage 02/13/2023 Hypothyroidism 10/11/2022 10/15/2022 Assessment & Plan (07/07/2024 11:14 AM FRAME FIXER): TSH within normal limits in May. Will have her return in 6 months for physical and repeat lab. Continue levothyroxine 50 mcg daily Vitamin D deficiency 10/11/2022 10/15/2022 Bilateral plantar fasciitis 02/16/202209/29 PCOS (polycystic ovarian syndrome) 02/25/2020 10/15/2022 Irritable bowel syndrome with diarrhea 9 10/15/2022 Assessment & Plan (07/07/2024 11:15 AM FRAME FIXER): History of IBS with diarrhea. She was using Viberzi before . She does not feel like she needs it at this time but asked if she could call and get prescription if needed. I agreed to Rx prescription p.r.n. symptoms Class 3 severe obesity due t o excess calories with serious comorbidity and body mass index (BMI) of 40.0 to 44.9 in adult 01/07/2019 10/15/2022 Assessment & Plan (07/07/2024 11:15 AM FRAME FIXER): BMI Follow-up includes: exercise counseling. Resolved Problems Problem Noted Date Diagnosed Date Resolved Date Diarrhea 10/15/2022 10/15/2022 02/12/2023 Anovulation 06/06/2022 10/15/2022 07/07/2024 Fatigue 06/06/2022 10/15/2022 02/12/2023 Foot pain 02/15/2022 10/15/2022 02/12/2023 Acute urinary tract infection 02/02/2022 10/15/2022 02/12/2023 Acute sinusitis 08/22/2021 10/15/2022 02/12/2023 Weight gain 02/25/2020 10/15/2022 02/12/2023 Adjustment disorder 01/07/2019 10/15/2022 07/07/19 25 Mixed anxiety and depressive disorder 07/01/201707/07/2025 Encounters Date Type Department Care Team Description 07/21/2024 Orders Only [facility] at [address] [phone] Elda Sandoval, STAFF AIR TACTICAL OFFICER 07/20/2024 Telephone [facility] Primary Care at [address] [phone] Elda Sandoval, STAFF AIR TACTICAL OFFICER 07/07/2024 10:30 AM FRAME FIXER Office Visit [facility] at [address] [phone] Elda Sandoval, STAFF AIR TACTICAL OFFICER Recurrent major depressive disorder, in full remission (Primary Dx); Acquired hypothyroidism; Class 3 severe obesity due to excess calories with serious comorbidity and body mass index (BMI) of 40.0 to 44.9 in adult (HCC); Irritable bowel syndrome with diarrhea from Last 3 Months Immunizations Immunization Administration Dates Next Due Influenza, Quadrivalent, Spl it, Preservative Free, Intramuscular 05/17/2023 Influenza, Trivalent, Cell C ulture-based MDCK, Preservative Free, Antibiotic Free, Intramuscular 03/14/2024 Influenza, Trivalent, IM (MDV) 04/22/2021 RSV, Bivalent, Protein Subun it Rsvpref, Diluent (Abrysvo) 03/09/2024 Tdap 02/09/2024,01/07/2019 Surgical History Surgery Date Site/Laterality Comments WISDOM TOOTH EXTRACTION Medical History Medical History Date Comments GERD (gastroesophageal reflux disease) Dysphagia Irritable bowel syndrome Chronic diarrhea Depression Anxiety PCOS (polycystic ovarian syndrome) Thyroid disease Menstrual problem Family History Medical History Relation Name Comments Obesity Father Naif Lux Alzheimer's disease Maternal Grandfather Chandu Crisostomovaibhav er Diabetes Maternal Grandmother Shelli Stewartnigel Hiatal hernia Maternal Grandmother Shelli Stewartnigel Obesity Maternal Grandmother Shelli Gui Stroke Maternal Grandmother Shelli Gui Crohn's disease Mother Alzheimer's disease Paternal Grandmother Ngoc Mary Ann Relation Name Status Comments Father Naif Lux Alive Maternal Grandfather Chandu Stewartnigel Maternal Grandmother Shelli Stewartfabioguadalupe Mother Alive Paternal Grandmother Ngoc White Social History Tobacco Use Types Packs/Day Years Used Date Smoking Tobacco: Never Smokeless Tobacco: Never Tobacco Cessation:Counseling Given: Not Answered AUDIT-C Answer Date Recorded Q1: How often do you have a drink containing alc ohol? Monthly or less 02/13/2023 Average Number of Drinks Not on file 023 Q3: How often do you have si x or more drinks on one occasion? Never 02/13/2023 PHQ-2 Answer Date Recorded PHQ-2 Total Score (If total score is 3 or more points, staff should administer the PHQ-9) 0 07/07/2024 Comments Unknown Sex and Gender Information Value Date Recorded Sex Assigned at Not on file Legal Sex Female 7:44 AM CDT Gender Identity Not on file Sexual Orientation Not on file Obstetrics History Para Term AB IAB SAB Ectopic Multiple Livin g Live Births 1 Date Outcome GA Total Labor Labor/2nd/3rd Weight Sex Type Anes PTL Danii A1 A5 Name Clin Last Filed Vital Signs Vital Sign Reading Time Taken Comments Blood Pressure 116/78 07/07/2024 10:41 AM FRAME FIXER Pulse 71 07/07/2024 10:41 AM FRAME FIXER Temperature 36.7 C (98 F) 07/07/2024 10:41 AM FRAME FIXER Respiratory Rate 16 07/07/2024 10:41 AM FRAME FIXER Oxygen Saturation 98% 07/07/2024 10:41 AM FRAME FIXER Inhaled Oxygen Concentration - - Weight 126 kg (277 lb 12.8 oz) 07/07/2024 10:41 AM FRAME FIXER Height 167.6 cm (5' 6 ) 07/07/2024 10:41 AM FRAME FIXER Body Mass Index 44.84 07/07/2024 10:41 AM FRAME FIXER Plan of Treatment Health Maintenance Due Date Last Done Comments Cervical Cancer Screening 1993 Hepatitis C Screening 1993 Varicella Vaccines (1 of 2 - 13+ 2-dose series) 2006 Hepatitis B Screening 10/31/2011 Regular Well Visit/Exam 18-64 10/31/2011 Depression Screening 07/07/2025 07/07/2024, 02/14/20 23 DTaP/Tdap/Td Vaccine (3 - Td or Tdap) 02/08/2034 02/09/2024, 01/07/2019 Covid-19 Vaccine Completed 03/14/2024, , 09/12/2020, Additional history exists Influenza Vaccine Completed 03/14/2024, , 04/22/2021 HPV Vaccines Aged Out No longer eligi ble based on patient's age to complete this topic Pneumococcal vaccine <65 Aged Out No longer eligible based on patient's age to complete this topic Insurance CIGNA CIGNA CIGNA Advance Directives For more information, please contact: [phone] * Full Code (Latest Code Status on File) Date Activated Date Inactivated Comments 06/16/2021 12:27 PM 06/16/2021 7:08 PM Care Teams Melt Helper Relationship Specialty Start Date End Date Elda Sandoval NP [address] [facility] [address] [place] [address] PCP - General Family Medicine 07/07/24 Karen Mcgee MD [address] [place] [address] Obstetrics and Gynecology 07/07/24
--- OUTSIDE RECORDS SUMMARY | 2024-09-30 14:25 | XMS_ITS | Clinical Summary ---
Author Organization [facility] Address [address] [place] [id number] Care Team Providers Care Line Camera Operator Name Role Phone JamesKathy Annalisa SCALES Primary Care Provider [phone] Allergies Active Allergy Reactions Criticality Noted Date Comments Sulfa Antibiotics Hives Medium 01/07/2019 Medications Levonorgest-Eth Estrad 91-Day (ASHLYNA) 0.15-0.03 &0.01 MG tablet Take 1 tablet by mouth daily. Active sertraline (ZOLOFT) 50 MG tabletIndication s:Adjustment disorder, unspecified type Take 1 tablet (50 mg total) by mouth daily. 30 tablet 5 02/25/2020 Active Active Problems Problem Noted Date Diagnosed Date PCOS (polycystic ovarian syndrome) 02/25/2020 Weight gain 02/25/2020 Irritable bowel syndrome wit h both constipation and diarrhea 01/07/2019 Adjustment disorder, unspecified type 01/07/2019 Obesity 01/07/2019 Resolved Problems Problem Noted Date Diagnosed Date Resolved Date Need for prophylactic vaccin ation with combined hdutcbxbie-nszacnv-qxultbbnd (DTP) vaccine 01/07/2019 03/11/2020 Immunizations Name Administration Dates Next Due Tdap (Historical Only-select from magnify glass) 01/07/2019 Family History Medical History Relation Comments Anxiety Maternal Grandfather Depression Maternal Grandfather Anxiety Maternal Grandmother Depression Maternal Grandmother Diabetes Maternal Grandmother Stroke Maternal Grandmother Crohns Disease Mother Anxiety Paternal Grandfather Depression Paternal Grandfather Anxiety Paternal Grandmother Depression Paternal Grandmother Relation Status Comments Maternal Grandfather Maternal Grandmother Mother Paternal Grandfather Paternal Grandmother Social History Tobacco Use Types Packs/Day Years Used Date Smoking Tobacco: Never Alcohol Use Standard Drinks/Week Comments Yes 0 (1 standard drink = 0.6 oz pur e alcohol) AUDIT-C Answer Date Recorded Frequency of Alcohol Consumption Monthly or less 01/07/2019 Average Number of Drinks Not on file 019 Frequency of Binge Drinking Not on file 12/29 PHQ-2 Answer Date Recorded PHQ-2 Score - If the patient scores above 3, please move on to questions 3-9 0 02/25/2020 Comments Unknown Sex and Gender Information Value Date Recorded Sex Assigned at Not on file Legal Sex Female 11:06 AM CDT Gender Identity Not on file Sexual Orientation Not on file 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 Not on file Not on file Last Filed Vital Signs Vital Sign Reading Time Taken Comments Blood Pressure 124/84 02/25/2020 12:52 PM CDT Pulse 76 02/25/2020 12:52 PM CDT Temperature - - Respiratory Rate - - Oxygen Saturation - - Inhaled Oxygen Concentration - - Weight 103 kg (227 lb) 02/25/2020 12:52 PM CDT Height 170.2 cm (5' 7 ) 02/25/2020 12:52 PM CDT Body Mass Index 35.55 02/25/2020 12:52 PM CDT Plan of Treatment Health Maintenance Due Date Last Done Comments Cervical Cancer Screening Pa p Smear (Age 30 to 64) Every 3 Years 1993 Hepatitis C 10/31/2011 Hepatitis B Vaccines (1 of 3 - 19+ 3-dose series) 2012 Annual Physical 02/24/2021 02/25/2020, 01/07/2019 Cervical Cancer Screening Pa p with HPV Testing (Age 30 to 64) Every 5 Years 10/31/2023 Cervical Cancer Screening wi th HPV 10/31/2023 COVID-19 Vaccine ( - 2023-2 5 season) 2024 DTaP, Tdap and Td Vaccines ( 2 - Td or Tdap) 01/07/2029 01/07/2019 HPV Vaccines Aged Out No longer eligi ble based on patient's age to complete this topic Meningococcal B Vaccine Aged Out No l onger eligible based on patient's age to complete this topic Meningococcal Vaccine Aged Out No shahrzad emilia eligible based on patient's age to complete this topic Pneumococcal Vaccine: Pediatrics (0 to 5 Years) and At-Risk Patients (6 to 64 Years) Aged Out No longer eligible b ased on patient's age to complete this topic RSV Immunizations Under 20 Months Aged Out No longer eligible b ased on patient's age to complete this topic Insurance [facility] Care Teams Line Camera Operator Relationship Specialty Start Date End Date Kathy Ramirez DO [address] [place] [address] PCP - General FAMILY PRACTICE 10/31/18
--- OUTSIDE RECORDS SUMMARY | 2024-09-30 14:25 | XMS_ITS | Referral Summary ---
Author Organization [facility] Address [address] [place] [address] Care Team Providers Care Lettuce Trimmer Name Role Phone Elda Sandoval NP Primary Care Provider [phone] Karen Mcgee MD Unavailable [phone] Encounters Date Type Department Care Team Description 07/21/2024 Orders Only [facility] Primary Care at [address] [address] Elda Sandoval NP 07/20/2024 Telephone [facility] Medical [facility] Primary Care at [address] [address] Elda Sandoval NP 07/07/2024 10:30 AM TROUBLE LOCATER Office Visit [facility] Medical [facility] Care at [address] [phone] Elda Sandoval NP Recurrent major depressive disorder, in full remission (Primary Dx); Acquired hypothyroidism; Class 3 severe obesity due to excess calories with serious comorbidity and body mass index (BMI) of 40.0 to 44.9 in adult (HCC); Irritable bowel syndrome with diarrhea from Last 3 Months Allergies Active Allergy Reactions Criticality Noted Date Comments Sulfa (Sulfonamide Antibiotics) Hives Medium 12/29 Medications cholecalciferol 25 mcg (1,000 unit) tablet Take 1 tablet (1,000 Units total) by mouth daily Active [id number] SS-DHA ORAL Take by mouth Acti ve citalopram (CeleXA) 20 mg tablet Take 1 tablet (20 mg total) by mouth daily 90 tablet 3 5 Active citalopram (CeleXA) 10 mg tablet Take 1 tablet (10 mg total) by mouth daily 90 tablet 3 5 Active Synthroid 50 mcg tablet Take 1 tablet (50 mcg total) by mouth adult education instructor before breakfast 90 tablet 1 5 Active Viberzi 100 mg tablet Take 1 tablet (100 mg total) by mouth 2 (two) times a day with meals 180 tablet 1 5 Active Active Problems Problem Noted Date Diagnosed Date Recurrent major depressive disorder, in full rem ission 02/13/2023 Assessment & Plan (07/07/2024 11:15 AM TROUBLE LOCATER): Stable on current medication. Continue citalopram 30 mg as ordered. May follow up in 6 months Gastroesophageal reflux dise ase with esophagitis without hemorrhage 02/13/2023 Hypothyroidism 10/11/2022 10/15/2022 Assessment & Plan (07/07/2024 11:14 AM TROUBLE LOCATER): TSH within normal limits in May. Will have her return in 6 months for physical and repeat lab. Continue levothyroxine 50 mcg daily Vitamin D deficiency 10/11/2022 10/15/2022 Bilateral plantar fasciitis 02/16/202209/29 PCOS (polycystic ovarian syndrome) 02/25/2020 10/15/2022 Irritable bowel syndrome with diarrhea 9 10/15/2022 Assessment & Plan (07/07/2024 11:15 AM TROUBLE LOCATER): History of IBS with diarrhea. She was [...] 10/15/2022 Assessment & Plan (07/07/2024 11:15 AM TROUBLE LOCATER): BMI Follow-up includes: exercise counseling. Resolved Problems Problem Noted Date Diagnosed Date Resolved Date Diarrhea 10/15/2022 10/15/2022 02/12/2023 Anovulation 06/06/2022 10/15/2022 07/07/2024 Fatigue 06/06/2022 10/15/2022 02/12/2023 Foot pain 02/15/2022 10/15/2022 02/12/2023 Acute urinary tract infection 02/02/2022 10/15/2022 02/12/2023 Acute sinusitis 08/22/2021 10/15/2022 02/12/2023 Weight gain 02/25/2020 10/15/2022 02/12/2023 Adjustment disorder 01/07/2019 10/15/2022 07/07/19 Mixed anxiety and depressive disorder 07/01/201707/07/2024 Immunizations Immunization Administration Dates Next Due Influenza, Quadrivalent, Spl it, Preservative Free, Intramuscular 05/17/2023 Influenza, Trivalent, Cell C ulture-based MDCK, Preservative Free, Antibiotic Free, Intramuscular 03/14/2024 Influenza, Trivalent, IM (MDV) 04/22/2021 RSV, Bivalent, Protein Subun it Rsvpref, Diluent (Abrysvo) 03/09/2024 Tdap 02/09/2024,01/07/2019 Social History Tobacco Use Types Packs/Day Years [...] on file Sexual Orientation Not on file Last Filed Vital Signs Vital Sign Reading Time Taken Comments Blood Pressure 116/78 07/07/2024 10:41 AM TROUBLE LOCATER Pulse 71 07/07/2024 10:41 AM TROUBLE LOCATER Temperature 36.7 C (98 F) 07/07/2024 10:41 AM TROUBLE LOCATER Respiratory Rate 16 07/07/2024 10:41 AM TROUBLE LOCATER Oxygen Saturation 98% 07/07/2024 10:41 AM TROUBLE LOCATER Inhaled Oxygen Concentration - - Weight 126 kg (277 lb 12.8 oz) 07/07/2024 10:41 AM TROUBLE LOCATER Height 167.6 cm (5' 6 ) 07/07/2024 10:41 AM TROUBLE LOCATER Body Mass Index 44.84 07/07/2024 10:41 AM TROUBLE LOCATER Plan of Treatment Not on file Insurance CIGNA CIGNA CIGNA Advance Directives For more information, please contact: [phone] * Full Code (Latest Code Status on File) Date Activated Date Inactivated Comments 06/16/2021 12:27 PM 06/16/2021 7:08 PM Care Teams Lettuce Trimmer Relationship Specialty Start Date End Date Elda Sandoval NP [address] [place] [address] PCP - General Family Medicine 07/07/24 Karen Mcgee MD [address] [place] [address] Obstetrics and Gynecology 07/07/24
--- OUTSIDE RECORDS SUMMARY | 2024-09-30 14:25 | XMS_ITS | Clinical Summary ---
Author Organization [facility] Address [address] [place] [address] Care Team Providers Care Agriculture Research Director Name Role Phone Unavailable Primary Care Provider Unavailabl e Source Comments [facility],non-owned Affiliates and Associated Physician Practices is amultiple site organization consisting of ambulatory clinics and hospital sitesin [place], [place], [place] and [place]. This disclosure is being madepursuant to the Care Everywhere program and may not contain all information available regarding this patient. Last updated 18.[facility] [place] Allergies Active Allergy Reactions Criticality Noted Date Comments Sulfa Drugs Rash Medium 03/04/2024 Medications * Be aware that medications may not be up to date on this document. Alwaysverify current medications with the patient. Medication Sig Dispensed Refills Start Date End Date Status Levothyroxine Sodium (Tirosint) 62.5 MCG CAPSIndications:Hypo thyroidism Take 62.5 capsules by mouth daily before breakfast Reasons: Underactive Thyroid Active Vit-Fe Fumarate-FA ( vitamin) 28-0.8 MG tabletIndications:Pr egnancy Take 1 (one) tablet by mouth once daily Reasons: Active aspirin EC (Ecotrin) 81 MG tablet Take 1 (one) tablet by mouth once daily Active citalopram (CeleXA) 40 MG tablet Take 30 mg by mouth once daily Active vitamin D3 (Cholecalciferol) 25 MCG (1000 UNITS) tablet Take 2 (two) tablets by mouth once daily Active Family History Medical History Relation Name Comments Cancer - Prostate Maternal Grandfather CVA Maternal Grandmother Diabetes - Type 2 Maternal Grandmother Crohn's Disease Mother Hypertension Mother Thyroid Disease Paternal Grandmother Relation Name Status Comments Maternal Grandfather Maternal Grandmother Mother Paternal Grandmother Social History Tobacco Use Types Packs/Day Years Used Date Smoking Tobacco: Never Smokeless Tobacco: Never Tobacco Cessation:Counseling Given: Not Answered Alcohol Use Standard Drinks/Week Comments Not Currently 0 (1 standard drink = 0.6 oz pur e alcohol) Sex and Gender Information Value Date Recorded Sex Assigned at Not on file Gender Identity Not on file Sexual Orientation Not on file Last Filed Vital Signs Vital Sign Reading Time Taken Comments Blood Pressure 123/86 04/21/2024 3:10 PM CDT Pulse 94 04/21/2024 3:10 PM CDT Temperature - - Respiratory Rate 18 03/24/2024 2:44 PM CDT Oxygen Saturation - - Inhaled Oxygen Concentration - - Weight 132.1 kg (291 lb 3.2 oz) 03/04/2024 1:23 PM CDT Height 167.6 cm (5' 6 ) 03/04/2024 1:23 PM CDT Body Mass Index 47 03/04/2024 1:23 PM CDT Plan of Treatment Health Maintenance Due Date Last Done Comments PAP SMEAR 1993 HIV SCREENING 2008 HEPATITIS C SCREENING 10/26/2011 DTAP/TDAP/TD VACCINES (1 - Tdap) 2012 HEPATITIS B VACCINE (1 of 3 - 19+ 3-dose series) 2012 COVID-19 VACCINE (2023-2 5 season) 2024 04/22/2021, 09/12/2020, 08/21/2020 INFLUENZA VACCINE (#1) 2024 3, 04/22/2021 DEPRESSION SCREENING 07/01/2024 ZOSTER VACCINE (1 of 2) 10/31/2043 HIB VACCINE Aged Out No longer eligi ble based on patient's age to complete this topic HPV VACCINE Aged Out No longer eligi ble based on patient's age to complete this topic MENINGOCOCCAL (Group B) VACCINE SHARED DECISION-MAKING Aged Out No longer eligible based on patient's age to complete this topic MENINGOCOCCAL GROUPS A/C/Y/W VACCINE Aged Out No longer eligible b ased on patient's age to complete this topic PNEUMOCOCCAL VACCINE Aged Out No long er eligible based on patient's age to [place] [address]
--- OUTSIDE RECORDS SUMMARY | 2024-09-30 14:25 | XMS_ITS | Data Portability ---
Author Organization [employer], Main Office Address [address] [place] [address] Care Team Providers Care Bulk System Operator Name Role Phone OKSANA YOUNG Primary Care Provider MAGDALENEJIN DELGADOIE Referring Provider [phone] Assessment Encounter Date Assessment Date Assessment LastModified by Organization Details LastModified Time 10/29/2022 10/29/2022 This note is dictated and transcribed by [employer]. Desk Director variances may occur. Despite proofreading, typographical errors may occur. Not available 10/29/2022 16:55:09 11/12/2022 11/12/2022 This note is dictated and transcribed by [employer]. Desk Director variances may occur. Despite proofreading, typographical errors may occur. Not available 11/13/2022 08:49:32 Plan of Treatment Reminders Order Date Submit Date Provider Last Modified By Organization Details Last Modified Time Details Appointments None recorded. Lab cortisol, am, serum 2022 023 [employer] [facility], [address], [place], [address], 12:24:38 dexamethaso ne, serum 2022 023 [employer] [facility], [address], [place], [address], 3 12:24:34 iodine, serum 2022 023 [employer] [facility], [address], [place], [address], 3 12:24:33 vitamin D, 25-hydroxy, total, serum 2022 023 [employer] [facility], [address], [place], [address], 3 12:24:40 dhea-sulfat e, serum 2022 023 [employer] [facility], [address], [place], [address], 3 12:24:36 insulin, serum 2022 023 [employer] [facility], [address], [place], [address], 3 12:24:37 CMP, serum or plasma 2022 023 [employer] [facility], [address], [place], [address], 3 12:24:32 testosteron e, free + total, serum 2022 023 [employer] [facility], [address], [place], [address], 3 12:24:42 TSH + free T4, serum 2022 023 [employer] [facility], [address], [place], [address], 3 12:24:41 T3, free, serum or plasma 2022 023 [employer] [facility], [address], [place], [address], 3 12:24:39 vitamin B12 + folate, serum or blood 2022 023 [employer] [facility], [address], [place], [address], 3 12:24:39 thyroid peroxidase (tpo) Ab, serum 2022 023 [employer] [facility], [address], [place], [address], 3 12:24:36 CBC w/ auto diff 2022 023 [employer] [facility], [address], [place], [address], 3 12:24:35 Referral None recorded. Procedures None recorded. Surgeries None recorded. Imaging US, thyroid 2022 023 [facility], [address] [place] [address], [address] [place] [address], [address], 3 11:02:08 Medication Orders dexamethaso ne 1 mg tablet 2022 023 [id number], [address] [place], [place], [id number], 3 09:44:20 ergocalcife rol (vitamin D2) 1,250 mcg (50,000 unit) capsule 2022 023 [id number], [address] [place], [place], [id number], 3 09:38:43 metformin ER 500 mg tablet,exte nded release 24 hr 2022 023 [facility][id number], [address] [place], [place], [id number], 3 09:38:44 Patient TargetsNo targets recorded. Patient InstructionsNo instructions recorded. Reason for Referral None Reported. Results Created Date Observation Date Name Description Value Unit Range Abnormal Flag Note LastModifiedBy Organization Detail LastModifiedTime 10/21/19 23 10/31/2022 COMPR EHENS ALEXA METAB OLIC PANEL glucose 93 mg/dL 65-99 normal Fasti ng refer ence inter emily Not Available [address], [address], 10/31/2022 12:24:32 10/21/19 23 10/31/2022 COMPR EHENS ALEXA METAB OLIC PANEL urea nitrogen (BUN) 12 mg/dL 7-25 normal Not Available [address], [address], 10/31/2022 12:24:32 10/21/19 23 10/31/2022 COMPR EHENS ALEXA METAB OLIC PANEL creatinine 0.65 mg/dL 0.50-0 .96 normal Not Available [address], [address], 10/31/2022 12:24:32 10/21/19 23 10/31/2022 COMPR EHENS ALEXA METAB OLIC PANEL eGFR 123 mL/mi n/1.7 3m2 > or = 60 normal The eGFR is based on the CKD-E PI 2020 quiana hylton. To calcu late the new eGFR from a previ ous Creat inine or Cysta tin C resul t, go to https ://jacklyn mckeon.o anthony/madison carmichael s/ kdoqi /gfr% 5Fcal culat or Not Available [address], [address], 10/31/2022 12:24:32 10/21/19 23 10/31/2022 COMPR EHENS ALEXA METAB OLIC PANEL BUN/creatini ne ratio NOT APPLIC ABLE (calc ) 6-22 Not Available [address], [address], 10/31/2022 12:24:32 10/21/19 23 10/31/2022 COMPR EHENS ALEXA METAB OLIC PANEL sodium 138 mmol/ L 135-14 6 normal Not Available [address], [address], 10/31/2022 12:24:32 10/21/19 23 10/31/2022 COMPR EHENS ALEXA METAB OLIC PANEL potassium 4.3 mmol/ L 3.5-5. 3 normal Not Available [address], [address], 10/31/2022 12:24:32 10/21/19 23 10/31/2022 COMPR EHENS ALEXA METAB OLIC PANEL chloride 105 mmol/ L 98-110 normal Not Available [address], [address], 10/31/2022 12:24:32 10/21/19 23 10/31/2022 COMPR EHENS ALEXA METAB OLIC PANEL carbon dioxide 23 mmol/ L 20-32 normal Not Available [address], [address], 10/31/2022 12:24:32 10/21/19 23 10/31/2022 COMPR EHENS ALEXA METAB OLIC PANEL calcium 9.3 mg/dL 8.6-10 .2 normal Not Available [address], [address], 10/31/2022 12:24:32 10/21/19 23 10/31/2022 COMPR EHENS ALEXA METAB OLIC PANEL protein, total 7.2 g/dL 6.1-8. 1 normal Not Available [address], [address], 10/31/2022 12:24:32 10/21/19 23 10/31/2022 COMPR EHENS ALEXA METAB OLIC PANEL albumin 4.3 g/dL 3.6-5. 1 normal Not Available [address], [address], 10/31/2022 12:24:32 10/21/19 23 10/31/2022 COMPR EHENS ALEXA METAB OLIC PANEL globulin 2.9 g/dL_ (calc ) 1.9-3. 7 normal Not Available [address], [address], 10/31/2022 12:24:32 10/21/19 23 10/31/2022 COMPR EHENS ALEXA METAB OLIC PANEL albumin/glob ulin ratio 1.5 (calc ) 1.0-2. 5 normal Not Available [address], [address], 10/31/2022 12:24:32 10/21/19 23 10/31/2022 COMPR EHENS ALEXA METAB OLIC PANEL bilirubin, total 0.5 mg/dL 0.2-1. 2 normal Not Available [address], [address], 10/31/2022 12:24:32 10/21/19 23 10/31/2022 COMPR EHENS ALEXA METAB OLIC PANEL alkaline phosphatase 96 U/L 31-125 normal Not Available [address], [address], 10/31/2022 12:24:32 10/21/19 23 10/31/2022 COMPR EHENS ALEXA METAB OLIC PANEL AST 19 U/L 10-30 normal Not Available [address], [address], 10/31/2022 12:24:32 10/21/19 23 10/31/2022 COMPR EHENS ALEXA METAB OLIC PANEL ALT 20 U/L 6-29 normal Not Available [address], [address], 10/31/2022 12:24:32 10/21/19 23 10/31/2022 IODIN E, SERUM /PLAS MA iodine, serum/plasma 59 mcg/L 52-109 This test was devel oped and its leeann tical perfo rmanc e regina cteri stics have been deter mined by [employer] [facility] [place]. It has not been clear ed or appro nichol by the U.S. Food and Drug Admin istra tion. This assay has been valid ated pursu ant to the CLIA regul ation s and is used for clini faisal purpo ses. Not Available [employer] [address] [place], [address], 10/31/2022 12:24:33 10/21/19 23 10/31/2022 DEXAM ETHAS ONE dexamethason e <20 NG/dL Refer ence Range s for Dexam ethas one: Basel ine: Less than 20 ng/dL 1 mg dexam ethas one overn ight: 180-5 50 ng/dL (8:00 -10:0 0 AM) This test was devel oped and its leeann tical perfo rmanc e regina cteri stics have been deter mined by [facility] Castell[facility] . It has not been clear ed or appro nichol by FDA. This assay has been valid ated pursu ant to the CLIA regul ation s and is used for clini faisal purpo ses. Not Available [employer] [address] [address] [place], [address], 10/31/2022 12:24:34 10/21/19 23 10/31/2022 CBC (INCL UDES DIFF/ PLT) white blood cell count 6.3 thous and/u L 3.8-10 .8 normal Not Available [facility] [address] [address] [place], [address], 10/31/2022 12:24:35 10/21/19 23 10/31/2022 CBC (INCL UDES DIFF/ PLT) red blood cell count 5.00 jimy on/uL 3.80-5 .10 normal Not Available [facility] [address] [place], [address], 10/31/2022 12:24:35 10/21/19 23 10/31/2022 CBC (INCL UDES DIFF/ PLT) hemoglobin 14.4 g/dL 11.7-1 5.5 normal Not Available [address], [address], 10/31/2022 12:24:35 10/21/19 23 10/31/2022 CBC (INCL UDES DIFF/ PLT) hematocrit 43.9 % 35.0-4 5.0 normal Not Available [address], [address], 10/31/2022 12:24:35 10/21/19 23 10/31/2022 CBC (INCL UDES DIFF/ PLT) MCV 87.8 fL 80.0-1 00.0 normal Not Available [address], [address], 10/31/2022 12:24:35 10/21/19 23 10/31/2022 CBC (INCL UDES DIFF/ PLT) MCH 28.8 pg 27.0-3 3.0 normal Not Available [address], [address], 10/31/2022 12:24:35 10/21/19 23 10/31/2022 CBC (INCL UDES DIFF/ PLT) MCHC 32.8 g/dL 32.0-3 6.0 normal Not Available [address], [address], 10/31/2022 12:24:35 10/21/19 23 10/31/2022 CBC (INCL UDES DIFF/ PLT) RDW 12.6 % 11.0-1 5.0 normal Not Available [address], [address], 10/31/2022 12:24:35 10/21/19 23 10/31/2022 CBC (INCL UDES DIFF/ PLT) platelet count 302 thous and/u L 140-40 0 normal Not Available [address], [address], 10/31/2022 12:24:35 10/21/19 23 10/31/2022 CBC (INCL UDES DIFF/ PLT) MPV 9.5 fL 7.5-12 .5 normal Not Available [address], [address], 10/31/2022 12:24:35 10/21/19 23 10/31/2022 CBC (INCL UDES DIFF/ PLT) absolute neutrophils 3478 cells /uL 1500-7 800 normal Not Available [address], [address], 10/31/2022 12:24:35 10/21/19 23 10/31/2022 CBC (INCL UDES DIFF/ PLT) absolute lymphocytes 2048 cells /uL 850-39 00 normal Not Available [address], [address], 10/31/2022 12:24:35 10/21/19 23 10/31/2022 CBC (INCL UDES DIFF/ PLT) absolute monocytes 498 cells /uL 200-95 0 normal Not Available [address], [address], 10/31/2022 12:24:35 10/21/19 23 10/31/2022 CBC (INCL UDES DIFF/ PLT) absolute eosinophils 227 cells /uL 15-500 normal Not Available [address], [address], 10/31/2022 12:24:35 10/21/19 23 10/31/2022 CBC (INCL UDES DIFF/ PLT) absolute basophils 50 cells /uL 0-200 normal Not Available [address], [address], 10/31/2022 12:24:35 10/21/19 23 10/31/2022 CBC (INCL UDES DIFF/ PLT) neutrophils 55.2 % normal Not Available [address], [address], 10/31/2022 12:24:35 10/21/19 23 10/31/2022 CBC (INCL UDES DIFF/ PLT) lymphocytes 32.5 % normal Not Available [address], [address], 10/31/2022 12:24:35 10/21/19 23 10/31/2022 CBC (INCL UDES DIFF/ PLT) monocytes 7.9 % normal Not Available [address], [address], 10/31/2022 12:24:35 10/21/19 23 10/31/2022 CBC (INCL UDES DIFF/ PLT) eosinophils 3.6 % normal Not Available [address], [address], 10/31/2022 12:24:35 10/21/19 23 10/31/2022 CBC (INCL UDES DIFF/ PLT) basophils 0.8 % normal Not Available [address], [address], 10/31/2022 12:24:35 10/21/19 23 10/31/2022 THYRO ID PEROX IDASE ANTIB ODIES thyroid peroxidase antibodies 2 IU/mL <9 normal Not Available [address], [address], 10/31/2022 12:24:35 10/21/19 23 10/31/2022 DHEA SULFA TE DHEA sulfate 201 mcg/d L 14-349 normal Not Available [address], [address], 10/31/2022 12:24:36 10/21/1910/31/2022 INSUL IN insulin 26.5 uIU/m L high Refer ence Range < or = 18.4 Risk: Optim al < or = 18.4 Moder ate NA High >18.4 Adult cardi ovasc ular event risk categ ory cut point s (opti mal, moder ate, high) are based on Insul in Refer ence Inter emily studi es perfo [facility]med at [facility] in 2021. Not Available [employer] [facility] [address] [place], [address], 10/31/2022 12:24:37 10/21/1910/31/2022 CORTI RUSSELL, A.M. cortisol, A.M. 5.5 mcg/d L normal Refer ence Range 8 a.m. (7-9 a.m.) Speci men: 4.0-2 2.0 Not Available [employer] [facility] [address] [place], [address], 10/31/2022 12:24:38 10/21/1910/31/2022 VITAM IN B12/F OLATE , SERUM PANEL vitamin B12 312 pg/mL 200-11 00 normal Pleas e Note: Altho ugh the refer ence range for vitam in B12 is 200-1 100 pg/mL , it has been repor bryan that betwe en 5 and 10% of patie nts with value s betwe en 200 and 400 pg/mL may exper ience neuro psych iatri c and hemat ologi c abnor malit ies due to occul t B12 defic iency ; less than 1% of patie nts with value s above 400 pg/mL will have sympt oms. Not Available [employer] [facility] [address] [place], [address], 10/31/2022 12:24:39 10/21/1910/31/2022 VITAM IN B12/F OLATE , SERUM PANEL folate, serum 6.2 NG/mL normal Refer ence Range Low: <3.4 Borde rline : 3.4-5 .4 Willow l: >5.4 Not Available [facility] [address] [address] , [place], [address], 10/31/2022 12:24:39 10/21/1910/31/2022 T3, FREE T3, free 3.7 pg/mL 2.3-4. 2 normal Not Available [facility] [address] , [place], [address], 10/31/2022 12:24:39 10/21/1910/31/2022 VITAM IN D,25- OH,TO ADRIAN,I A vitamin D,25-oh,tota l,ia 23 NG/mL 30-100 low Vitam in D Statu s 25-OH Vitam in D: Defic iency : <20 ng/mL Insuf ficie ncy: 20 - 29 ng/mL Optim al: > or = 30 ng/mL For 25-OH Vitam in D testi ng on patie nts on D2-mccarty pplem entat ion and patie nts for whom quant itati on of D2 and D3 fract ions is requi red, the [facility](TM ) 25-OH VIT D, (D2,D 3), LC/MS /MS is recom shantel d: order code 44555 (nevin ents >2yrs ). See Note 1 Note 1 For addit ional infor batsheva perdue refer to http: //[facility] artie Vargheseia gnost ics.c om/fa q/FAQ 199 (This link is being provi ded for infor puja newberry/ chepe jj purpo ses only. ) Not Available [facility] [address], [place], [address], 10/31/2022 12:24:40 10/21/1910/31/2022 TSH+F REE T4 TSH 3.35 mIU/L normal Refer ence Range > or = 20 Years 0.40- 4.50 Pregn love Range s First trime ster 0.26- 2.66 Secon d trime ster 0.55- 2.73 Third trime ster 0.43- 2.91 Not Available [facility] [address] [address] [address], [place], [address], 10/31/2022 12:24:41 10/21/1910/31/2022 TSH+F REE T4 T4, free 1.1 NG/dL 0.8-1. 8 normal Not Available [facility] [address] [address] [address], [place], [address], 10/31/2022 12:24:41 10/21/1910/31/2022 TESTO STERO NE, FREE (DIAL YSIS) AND TOTAL ,MS testosterone , total, MS 88 NG/dL 2-45 high For addit ional infor batsheva perdue refer to https ://ed ucati on.Mayomi. [employer]/f aq/FA Q165 (This link is being provi ded for infor puja nal/e ducat ional purpo ses only. ) (Note ) This test was devel oped and its leeann tical perfo rmanc e regina cteri stics have been deter mined by [employer]. It has not been clear ed or appro nichol by the FDA. This assay has been valid ated pursu ant to the CLIA regul ation s and is used for clini faisal purpo ses. Not Available [facility] [address] [address] [address], [place], [address], 10/31/2022 12:24:42 10/21/1910/31/2022 TESTO STERO NE, FREE (DIAL YSIS) AND TOTAL ,MS testosterone , free 13 pg/mL 0.1-6. 4 high (Note ) This test was devel oped and its leeann tical perfo rmanc e regina cteri stics have been deter mined by [employer]. It has not been clear ed or appro nichol by the FDA. This assay has been valid ated pursu ant to the CLIA regul ation s and is used for clini faisal purpo ses. [facility] med fusio n [address] [facility] [address] [facility] [address] [phone] Vijay cochran MD Not Available [employer] [address], [address], 10/31/2022 12:24:42 10/25/19 23 10/31/2022 DEXAM ETHAS ONE dexamethason e 382 NG/dL Refer ence Range s for Dexam ethas one: Basel ine: Less than 20 ng/dL 1 mg dexam ethas one overn ight: 180-5 50 ng/dL (8:00 -10:0 0 AM) This test was devel oped and its leeann tical perfo rmanc e regina cteri stics have been deter mined by [facility] pantera Romeroi ricardo Castellanos . It has not been clear ed or appro nichol by FDA. This assay has been valid ated pursu ant to the CLIA regul ation s and is used for clini faisal purpo ses. Not Available [facility] [address], [address], 10/31/2022 15:24:08 10/25/19 23 10/31/2022 CORTI RUSSELL, A.M. cortisol, A.M. 0.5 mcg/d L low Refer ence Range 8 a.m. (7-9 a.m.) Speci men: 4.0-2 2.0 Not Available [facility] [address], [address], 10/31/2022 15:24:08 01/20/20 23 01/23/2023 COMPR EHENS ALEXA METAB OLIC PANEL glucose 91 mg/dL 65-99 normal Fasti ng refer ence inter emily Not Available [facility] [address], [address], 01/23/2023 14:36:38 01/20/20 23 01/23/2023 COMPR EHENS ALEXA METAB OLIC PANEL urea nitrogen (BUN) 12 mg/dL 7-25 normal Not Available [employer] [address], [address], 01/23/2023 14:36:38 01/20/20 23 01/23/2023 COMPR EHENS ALEXA METAB OLIC PANEL creatinine 0.63 mg/dL 0.50-0 .96 normal Not Available [address], [address], 01/23/2023 14:36:38 01/20/20 23 01/23/2023 COMPR EHENS ALEXA METAB OLIC PANEL eGFR 123 mL/mi n/1.7 3m2 > or = 60 normal The eGFR is based on the CKD-E PI 2020 equat ion. To calcu late the new eGFR from a previ ous Creat inine or Cysta tin C resul t, go to https ://jacklyn mckeon.lul cruz/madison carmichael s/ kdoqi /gfr% 5Fcal culat or Not Available [address], [address], 01/23/2023 14:36:38 01/20/20 23 01/23/2023 COMPR EHENS ALEXA METAB OLIC PANEL BUN/creatini ne ratio NOT APPLIC ABLE (calc ) 6-22 Not Available [address], [address], 01/23/2023 14:36:38 01/20/20 23 01/23/2023 COMPR EHENS ALEXA METAB OLIC PANEL sodium 136 mmol/ L 135-14 6 normal Not Available [address], [address], 01/23/2023 14:36:38 01/20/20 23 01/23/2023 COMPR EHENS ALEXA METAB OLIC PANEL potassium 3.8 mmol/ L 3.5-5. 3 normal Not Available [address], [address], 01/23/2023 14:36:38 01/20/20 23 01/23/2023 COMPR EHENS ALEXA METAB OLIC PANEL chloride 104 mmol/ L 98-110 normal Not Available [address], [address], 01/23/2023 14:36:38 01/20/20 23 01/23/2023 COMPR EHENS ALEXA METAB OLIC PANEL carbon dioxide 23 mmol/ L 20-32 normal Not Available [address], [address], 01/23/2023 14:36:38 01/20/20 23 01/23/2023 COMPR EHENS ALEXA METAB OLIC PANEL calcium 8.9 mg/dL 8.6-10 .2 normal Not Available [address], [address], 01/23/2023 14:36:38 01/20/20 23 01/23/2023 COMPR EHENS ALEXA METAB OLIC PANEL protein, total 6.5 g/dL 6.1-8. 1 normal Not Available [address], [address], 01/23/2023 14:36:38 01/20/20 23 01/23/2023 COMPR EHENS ALEXA METAB OLIC PANEL albumin 3.9 g/dL 3.6-5. 1 normal Not Available [address], [address], 01/23/2023 14:36:38 01/20/20 23 01/23/2023 COMPR EHENS ALEXA METAB OLIC PANEL globulin 2.6 g/dL_ (calc ) 1.9-3. 7 normal Not Available [address], [address], 01/23/2023 14:36:38 01/20/20 23 01/23/2023 COMPR EHENS ALEXA METAB OLIC PANEL albumin/glob ulin ratio 1.5 (calc ) 1.0-2. 5 normal Not Available [address], [address], 01/23/2023 14:36:38 01/20/20 23 01/23/2023 COMPR EHENS ALEXA METAB OLIC PANEL bilirubin, total 0.4 mg/dL 0.2-1. 2 normal Not Available [address], [address], 01/23/2023 14:36:38 01/20/20 23 01/23/2023 COMPR EHENS ALEXA METAB OLIC PANEL alkaline phosphatase 96 U/L 31-125 normal Not Available [address], [address], 01/23/2023 14:36:38 01/20/20 23 01/23/2023 COMPR EHENS ALEXA METAB OLIC PANEL AST 13 U/L 10-30 normal Not Available [address], [address], 01/23/2023 14:36:38 01/20/20 23 01/23/2023 COMPR EHENS ALEXA METAB OLIC PANEL ALT 15 U/L 6-29 normal Not Available [address], [address], 01/23/2023 14:36:38 01/20/20 23 01/23/2023 CBC (INCL UDES DIFF/ PLT) white blood cell count 5.5 thous and/u L 3.8-10 .8 normal Not Available [address], [address], 01/23/2023 14:36:40 01/20/20 23 01/23/2023 CBC (INCL UDES DIFF/ PLT) red blood cell count 4.99 jimy on/uL 3.80-5 .10 normal Not Available [address], [address], 01/23/2023 14:36:40 01/20/20 23 01/23/2023 CBC (INCL UDES DIFF/ PLT) hemoglobin 14.2 g/dL 11.7-1 5.5 normal Not Available [address], [address], 01/23/2023 14:36:40 01/20/20 23 01/23/2023 CBC (INCL UDES DIFF/ PLT) hematocrit 44.5 % 35.0-4 5.0 normal Not Available [address], [address], 01/23/2023 14:36:40 01/20/20 23 01/23/2023 CBC (INCL UDES DIFF/ PLT) MCV 89.2 fL 80.0-1 00.0 normal Not Available [address], [address], 01/23/2023 14:36:40 01/20/20 23 01/23/2023 CBC (INCL UDES DIFF/ PLT) MCH 28.5 pg 27.0-3 3.0 normal Not Available [address], [address], 01/23/2023 14:36:40 01/20/20 23 01/23/2023 CBC (INCL UDES DIFF/ PLT) MCHC 31.9 g/dL 32.0-3 6.0 low Not Available [address], [address], 01/23/2023 14:36:40 01/20/20 23 01/23/2023 CBC (INCL UDES DIFF/ PLT) RDW 12.2 % 11.0-1 5.0 normal Not Available [address], [address], 01/23/2023 14:36:40 01/20/20 23 01/23/2023 CBC (INCL UDES DIFF/ PLT) platelet count 300 thous and/u L 140-40 0 normal Not Available [facility] [address] [place], [address], 01/23/2023 14:36:40 01/20/20 23 01/23/2023 CBC (INCL UDES DIFF/ PLT) MPV 9.9 fL 7.5-12 .5 normal Not Available [address], [address], 01/23/2023 14:36:40 01/20/20 23 01/23/2023 CBC (INCL UDES DIFF/ PLT) absolute neutrophils 3086 cells /uL 1500-7 800 normal Not Available [address], [address], 01/23/2023 14:36:40 01/20/20 23 01/23/2023 CBC (INCL UDES DIFF/ PLT) absolute lymphocytes 1722 cells /uL 850-39 00 normal Not Available [address], [address], 01/23/2023 14:36:40 01/20/20 23 01/23/2023 CBC (INCL UDES DIFF/ PLT) absolute monocytes 457 cells /uL 200-95 0 normal Not Available [address], [address], 01/23/2023 14:36:40 01/20/20 23 01/23/2023 CBC (INCL UDES DIFF/ PLT) absolute eosinophils 198 cells /uL 15-500 normal Not Available [address], [address], 01/23/2023 14:36:40 01/20/20 23 01/23/2023 CBC (INCL UDES DIFF/ PLT) absolute basophils 39 cells /uL 0-200 normal Not Available [address] [place], [address], 01/23/2023 14:36:40 01/20/20 23 01/23/2023 CBC (INCL UDES DIFF/ PLT) neutrophils 56.1 % normal Not Available [address], [address], 01/23/2023 14:36:40 01/20/20 23 01/23/2023 CBC (INCL UDES DIFF/ PLT) lymphocytes 31.3 % normal Not Available [address], [address], 01/23/2023 14:36:40 01/20/20 23 01/23/2023 CBC (INCL UDES DIFF/ PLT) monocytes 8.3 % normal Not Available [address], [address], 01/23/2023 14:36:40 01/20/20 23 01/23/2023 CBC (INCL UDES DIFF/ PLT) eosinophils 3.6 % normal Not Available [address], [address], 01/23/2023 14:36:40 01/20/20 23 01/23/2023 CBC (INCL UDES DIFF/ PLT) basophils 0.7 % normal Not Available [address], [address], 01/23/2023 14:36:40 01/20/20 23 01/23/2023 THYRO ID PEROX IDASE ANTIB ODIES thyroid peroxidase antibodies 2 IU/mL <9 Not Available [address], [address], 01/23/2023 14:36:40 01/20/20 23 01/23/2023 DHEA SULFA TE DHEA sulfate 149 mcg/d L 14-349 normal Not Available [address], [address], 01/23/2023 14:36:41 01/20/20 23 01/23/2023 INSUL IN insulin 27.7 uIU/m L high Refer ence Range < or = 18.4 Risk: Optim al < or = 18.4 Moder ate NA High >18.4 Adult cardi ovasc ular event risk categ ory cut point s (opti mal, moder ate, high) are based on Insul in Refer ence Inter emily studi es perfo rmed at [facility] in 2021. Not Available [facility] [address] [address] [place], [address], 01/23/2023 14:36:42 01/20/2001/23/2023 T3, FREE T3, free 3.5 pg/mL 2.3-4. 2 normal Not Available [facility] [address] [address] [place], [address], 01/23/2023 14:36:42 01/20/2001/23/2023 VITAM IN D,25- OH,TO ADRIAN,I A vitamin D,25-oh,tota l,ia 32 NG/mL 30-100 normal Vitam in D Statu s 25-OH Vitam in D: Defic iency : <20 ng/mL Insuf ficie ncy: 20 - 29 ng/mL Optim al: > or = 30 ng/mL For 25-OH Vitam in D testi ng on patie nts on D2-mccarty pplem entat ion and patie nts for whom quant itati on of D2 and D3 fract ions is requi red, the [facility] eD(TM ) 25-OH VIT D, (D2,D 3), LC/MS /MS is recom shantel d: order code 47933 (nevin ents >2yrs ). See Note 1 Note 1 For addit ional infor batsheva perdue e refer to http: //[email or web address] [email or web address] ics.c om/fa q/FAQ 199 (This link is being provi ded for infor puja newberry/ chepe jj purpo ses only. ) Not Available [facility] [address] [place], [address], 01/23/2023 14:36:43 01/20/2001/23/2023 TSH+F REE T4 TSH 2.58 mIU/L normal Refer ence Range > or = 20 Years 0.40- 4.50 Pregn love Range s First trime ster 0.26- 2.66 Secon d trime ster 0.55- 2.73 Third trime ster 0.43- 2.91 Not Available [facility] [address] [address] [place], [address], 01/23/2023 14:36:44 01/20/20 23 01/23/2023 TSH+F REE T4 T4, free 1.1 NG/dL 0.8-1. 8 normal Not Available [facility] [address] [address] [place], [address], 01/23/2023 14:36:44 01/20/2001/23/2023 TESTO STERO NE, FREE (DIAL YSIS) AND TOTAL ,MS testosterone , total, MS 86 NG/dL 2-45 high For addit ional kingstonr batsheva perdue e refer to https ://ed ucati on.qu estShanghai 4[employer]. com/f aq/FA Q165 (This link is being provi ded for infor puja nal/e ducat ional purpo ses only. ) (Note ) This test was devel oped and its leeann tical perfo rmanc e regina cteri stics have been deter mined by [employer]. It has not been clear ed or appro nichol by the FDA. This assay has been valid ated pursu ant to the CLIA regul ation s and is used for clini faisal purpo ses. Not Available [facility] [address] [place], [address], 01/23/2023 14:36:44 01/20/2001/23/2023 TESTO STERO NE, FREE (DIAL YSIS) AND TOTAL ,MS testosterone , free 10.2 pg/mL 0.1-6. 4 high (Note ) This test was devel oped and its leeann tical perfo rmanc e regina cteri stics have been deter mined by [employer]. It has not been clear ed or appro nichol by the FDA. This assay has been valid ated pursu ant to the CLIA regul ation s and is used for clini fasial purpo ses. CARLENE med mary ellen n [address] [facility] [address] [place] [address] [phone] Kael maher MD Not Available [facility] [address], [place], [address], 01/23/2023 14:36:44 10/18/19 23 10/17/2022 US, thyro id No observ ation record ed. [address] [facility] [address], [place], [address], 10/18/2022 23:08:03 Result Notes None recorded. Problems Name Problem SNOMED Code Status Onset Date Resolution Date Notes Provider Name and Address Organization Details Recorded Time Irritable bowel syndrome 85186810 Active Not Available [facility] 3 18:38:43 Plantar fasciitis of right foot 1353941618876 9101 Active 2021 Not Available [facility] 3 18:38:44 Acute sinusitis 49997752 Active 2021 Not Available [facility] 3 18:38:44 Mixed anxiety and depressive disorder 356320339 Active 2017 Not Available [facility] 3 18:38:44 Polycystic ovary syndrome 296375873 Active 2019 Not Available [facility] 3 18:38:44 Anovulatio n 28943582 Active 2021 Not Available [facility] 3 18:38:44 Acute urinary tract infection 885463851 Active 2021 Not Available [facility] 3 18:38:44 Foot pain 91059607 Active 2021 Not Available [facility] 3 18:38:44 Diarrhea 31974821 Active Not Available [facility] 3 18:38:44 Fatigue 32023708 Active 2021 Not Available [facility] 3 18:38:44 Hypothyroi dism 08383746 Active 2022 Shari Melvin MD [address], [place], [address] , [employer] [facility] [employer] [facility] 3 09:37:13 Vitamin D deficiency 87928402 Active 2022 Shari Melvin MD [address], [address], [place], [address] , Transfer To [facility] 3 09:37:21 Goiter 0388780 Active 2022 Shari Melvin MD [address], [address], [place], [address] , [facility] 3 09:43:06 Weight gain 3423747 Active 2022 Shari Melvin MD [address], [employer], [place], [address] , Transfer To [facility] 3 09:43:15 Bilateral plantar fasciitis 7595262245916 9108 Active 2022 Sher Spence DPM [address], [employer], [place], [address] , [employer] [facility] [employer] [facility] 3 16:55:18 Problem Notes None recorded. Procedures Surgical History Date Name Laterality Status Provider Name and Address Organization Details Recorded Time 11/13/19 23 Blank Procedure Note completed Sher Spence DPM [address], [employer], [place], [address], [employer] [facility] [employer] [facility] 11/13/2022 08:49:21 06/16/20 21 Date of Last Colonoscopy completed Not Available [facility] 08/29/2022 18:37:57 12/16/19 20 Date of Last Pap Smear completed Not Available [facility] 08/29/2022 18:37:57 Imaging Results Imaging Date Name Status LastModified by Organiz ation Details LastModified Time 10/17/2022 US, thyroid completed [email or web address] [address] [facility] [address], [place], [address], 10/18/2022 23:08:03 Procedure Notes None recorded. Medical Equipment None Reported. Allergies Allergen ID Allergen Name Allergen Category Reaction Reaction Severity Criticality Documentation Date Start Date Code Code System Note Provider Name and Address Organization Details Recorded Time 79819 Substance with sulfonami de structure and antibacte rial mechanism of action (substanc e) medicatio n hives Not available Not available 08/29/2022 25421 8003 SNOMED Not Available [facility] 3 18:40:13 Medications Name Sig Start Date Stop Date Status Note LastModified by Organization Details LastModified Time amoxicillin 500 mg capsule TK 1 C PO TID 12/15 completed Not Available Not Available Not Available medroxyprog esterone 10 mg tablet TAKE 1 TABLET BY MOUTH EVERY DAY DIRECTED AFTER NEGATIVE TEST 10/11 completed Not Available Not Available Not Available benzonatate 200 mg capsule TK 1 C PO TID PRN 12/15 completed Not Available Not Available Not Available citalopram 10 mg tablet TAKE 1 TABLET BY MOUTH EVERY DAY active Not Available Not Available No t Available ciprofloxac in 500 mg tablet TAKE 1 TABLET BY MOUTH EVERY 12 HOURS FOR 7 DAYS 06/06 completed Not Available Not Available Not Available levothyroxi ne 25 mcg tablet TAKE 1 TABLET BY MOUTH EVERY DAY DIRECTED. REPEAT LAB IN 4-6 WEEKS active Not Available Not Available No t Available amoxicillin 875 mg tablet Take 1 tablet every 12 hours by oral route. active Not Available Not Available No t Available alprazolam 0.25 mg tablet TK 1 T PO TID PRN FOR ANXIETY 06/15 completed Not Available Not Available Not Available citalopram 20 mg tablet TAKE 1 TABLET BY MOUTH EVERY DAY active Not Available Not Available No t Available dexamethaso ne 1 mg tablet TAKE 1 TABLET BY MOUTH AT 10 PM THE NIGHT BEFORE 8 AM CORTISOL active Not Available Not Available No t Available cephalexin 500 mg capsule TK 1 C PO QID 12/15 completed Not Available Not Available Not Available nitrofurant oin macrocrysta l 100 mg capsule TAKE 1 CAPSULE BY MOUTH TWICE DAILY FOR 5 DAYS 04/19 completed Not Available Not Available Not Available Synthroid 50 mcg tablet TAKE 1 TABLET BY MOUTH EVERY DAY DIRECTED active Not Available Not Available No t Available ergocalcife rol (vitamin D2) 1,250 mcg (50,000 unit) capsule TAKE 1 CAPSULE BY MOUTH EVERY WEEK IN THE MORNING active Not Available Not Available No t Available letrozole 2.5 mg tablet TAKE 1 TABLET BY MOUTH DAILY FOR 5 DAYS. TAKE ON DAYS 3-7 OF MENSTRUAL CYCLE 10/11 completed Not Available Not Available Not Available cefdinir 300 mg capsule active Not Available Not Available Not Available metformin ER 500 mg tablet,exte nded release 24 hr TAKE 1 TABLET BY MOUTH EVERY DAY AT DINNER active Not Available Not Available No t Available sertraline 50 mg tablet TK 1 T PO D active Not Available Not Available No t Available doxycycline hyclate 100 mg tablet TAKE 1 TABLET BY MOUTH TWICE DAILY DIRECTED. START DAY BEFORE HSG 10/11 completed Not Available Not Available Not Available dicyclomine 10 mg capsule Take 1 capsule 3 times a day by oral route as needed. active Not Available Not Available No t Available amoxicillin 875 mg-potassiu m clavulanate 125 mg tablet Take 1 tablet every 12 hours by oral route. active Not Available Not Available No t Available levonorgest rel 0.15 mg-ethinyl estradiol 30 mcg tablets,3 mos pack(91) TAKE 1 TABLET BY MOUTH EVERY DAY active Not Available Not Available No t Available TriNessa (28) 0.18 mg(7)/0.215 mg(7)/0.25 mg(7)-35 mcg tablet TK 1 T PO QD 01/14 completed Not Available Not Available Not Available nitrofurant oin monohydrate /macrocryst als 100 mg capsule TAKE 1 CAPSULE BY MOUTH TWICE DAILY 06/06 completed Not Available Not Available Not Available peg 3350-electr olytes 236 gram-22.74 gram-6.74 gram-5.86 gram solution TAKE DIRECTED 02/15 completed Not Available Not Available Not Available Viberzi 100 mg tablet TAKE 1 TABLET BY MOUTH TWICE DAILY WITH MEALS 06/06 completed Not Available Not Available Not Available Isibloom 0.15 mg-0.03 mg tablet TAKE 1 TABLET BY MOUTH EVERY DAY CONTINUOU S 10/11 completed Not Available Not Available Not Available Simpesse 0.15 mg-30 mcg (84)/10 mcg(7) tablets,3 month dose pack TAKE 1 TABLET BY MOUTH EVERY DAY 08/18 /2022 completed Not Available Not Available Not Available ID NOW COVID-19 Test Kit TEST DIRECTED TODAY 06/06 completed Not Available Not Available Not Available Mounjaro 2.5 mg/0.5 mL subcutaneou s pen injector Inject 2.5 mg every week by subcutane ous route as directed. 10/11 completed Not Available Not Available Not Available Vitals Date Recorded Body mass index (BMI) Body height Body weight Provider Name and Address Organization Details Last Updated DateTime 04/26/2022 39.2 kg/m2 170.18 cm 447685.09 g Not Available [facility] 08/29/2022 18:38:23 Date Recorded Body mass index (BMI) Body height Oxygen saturation Oxygen saturation in Arterial blood by Pulse oximetry Heart rate Body temperature Body weight Systolic blood pressure Diastolic blood pressure Provider Name and Address Organization Details Last Updated DateTime 2 43.5 kg/m2 170.18 cm 98 % 98 % 87 /min 97.4 [degF] 685859. 68 g 114 mm[Hg] 62 mm[Hg] Not Available [facility] 3 18:38:21 Date Recorded Body height Body mass index (BMI) Body weight Body temperature Heart rate Respiratory rate Systolic blood pressure Diastolic blood pressure Provider Name and Address Organization Details Last Updated DateTime 3 170.18 cm 44.9 kg/m2 304861. 85 g 97.9 [degF] 76 /min 18 /min 118 mm[Hg] 73 mm[Hg] SARAH Lilly [facility] [employer] [facility] 3 09:11:07 Date Recorded Body height Body mass index (BMI) Body weight Heart rate Respiratory rate Oxygen saturation Oxygen saturation in Arterial blood by Pulse oximetry Systolic blood pressure Diastolic blood pressure Provider Name and Address Organization Details Last Updated DateTime 3 170.18 cm 44.8 kg/m2 337385. 42 g 55 /min 16 /min 99 % 99 % 106 mm[Hg] 69 mm[Hg] Adeline Childs [facility] [employer] [facility] 3 16:19:37 Date Recorded Body height Body mass index (BMI) Body weight Heart rate Respiratory rate Body temperature Oxygen saturation Oxygen saturation in Arterial blood by Pulse oximetry Systolic blood pressure Diastolic blood pressure Provider Name and Address Organization Details Last Updated DateTime 3 170.18 cm 44.8 kg/m2 076502. 42 g 73 /min 14 /min 98 [degF] 98 % 98 % 110 mm[Hg] 70 mm[Hg] Peyton Sanders [facility] [employer] [facility] 17:45:21 Social History Question Answer Notes LastModified by Organizat ion Details LastModified Time Tobacco Smoking Status Never Smoker Shell Gatica evelia, [place] [employer] [facility] [employer] [facility] 10/11/2022 08:56:57 Do You Have An Advance Directive? No [id number] Information not available 08/29/2022 What Is Your Level Of Alcohol Consumption? Occasional [id number] Information not available 08/29/2022 What Is Your Level Of Caffeine Consumption? None [id number] Information not available 08/29/2022 How Much Tobacco Do You Chew? None [id number] Information not available 08/29/2022 In The 14 Days Before Symptom Onset, Have You Had Close Contact With A Laboratory-confir med COVID-19 While That Case Was Ill? No [email or web address] Information not available 10/11/2022 In The 14 Days Before Symptom Onset, Have You Had Close Contact With A Person Who Is Under Investigation For COVID-19 While That Person Was Ill? No [email or web address] Information not available 10/11/2022 What Type Of Diet Are You Following? REGULAR [id number] Information not available 08/29/2022 Which Illicit Or Recreational Drugs Have You Used? NONE Information not available 10/11/2022 Do You Or Have You Ever Used E-cigarettes Or Vape? 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 No [email or web address] Information not available 10/11/2022 Do You Have A Medical Power Of Cafe Lead? No Information not available 10/11/2022 Have You Ever Been Counseled For Unhealthy Alcohol Use? No [email or web address] Information not available 10/11/2022 Do You Or Have You Ever Used Smokeless Tobacco? Never Used Smokeless Tobacco [id number] Information not available 08/29/2022 How Much Tobacco Do You Smoke? No [id number] Information not available 08/29/2022 Do You Use Sunscreen Routinely? Yes [email or web address] Information not available 10/11/2022 Has Tobacco Cessation Counseling Been Provided? No [email or web address] Information not available 10/11/2022 Have You Recently Traveled Abroad? No Information not available 10/11/2022 Do You Or Have You Ever Used Any Other Forms Of Tobacco Or Nicotine? No [email or web address] Information not available 10/11/2022 Sex: Female Functional Status Question Answer Note LastModified by Organizat ion Details LastModified Time What is your exercise level? Occasional [id number] Information not available 08/29/2022 Mental Status None recorded. Family History Relationship Description Onset Age of this Age Resolved Age Notes LastModified by Organization Details LastModified Time Mother Crohn's disease [email or web address] Not available 2022 08:56:57 Maternal Grandfather Carcinoma of prostate [email or web address] Not available 2022 08:56:57 Maternal Grandfather Hypertensive disorder [id number] Not available 08/29/2022 18:37:58 Maternal Grandmother Diabetes mellitus [id number] Not available 08/29/2022 18:37:58 Maternal Grandmother Hypertensive disorder [id number] Not available 08/29/2022 18:37:58 Maternal Grandmother Cerebrovascu lar accident Not available 08:56:57 Paternal Grandfather Hypertensive disorder [id number] Not available 08/29/2022 18:37:58 Paternal Grandmother Hypertensive disorder [id number] Not available 08/29/2022 18:37:58 Medical History Condition Response OBESITY Y ANXIETY DISORDER Y ALLERGIES/HAYFEVER Y BOWEL PROBLEMS Y FEMALE PROBLEMS / INFECTIONS Y DEPRESSION (INCLUDING POST ) Y Gynecological History Statement/Question Response Abnormal Pap N Flow Moderate Date of Last Colonoscopy 06/16/2021 Date of LMP Frequency of Cycle (Q days) Duration of Flow (days) Date of Last Pap Smear 12/16/2019 Current Control Method BCPs Age at Menarche 10 Breast Problems NONE Obstetrics History GPAL:G 0 P 0 0 0 0 Immunizations Vaccine Type Date Status Note Provider Nam e and Address Organization Details Recorded Time COVID-19, mRNA, LNP-S, PF, 30 mcg/0.3 mL dose 09/12/2020 completed Not Available [facility] 18:40:04 COVID-19, mRNA, LNP-S, PF, 30 mcg/0.3 mL dose 08/21/2020 completed Not Available [facility] 18:40:04 Past Encounters Encounter ID Performer Location Encounter Start Date Encounter Closed Date Diagnosis/Indication Diagnosis SNOMED-CT Code Diagnosis ICD10 Code Diagnosis Note [id number] _ATHENA_M IGRATION_ DEFAULT_1 _1 , 09/28/2020 00:00:00 09/28/2020 09:57:25 [id number] _ATHENA_M IGRATION_ DEFAULT_1 _1 , 11/30/2020 00:00:00 11/30/2020 16:32:21 [id number] _ATHENA_M IGRATION_ DEFAULT_1 _1 , 11/30/2020 00:00:00 11/30/2020 18:58:11 [id number] [facility] [place] [address] [place] [address] 12/15/2020 00:00:00 12/15/2020 09:09:40 [id number] _ATHENA_M IGRATION_ DEFAULT_1 _1 , 01/04/2021 00:00:00 01/04/2021 17:01:13 [id number] _ATHENA_M IGRATION_ DEFAULT_1 _1 , 04/19/2021 00:00:00 04/19/2021 17:01:22 [id number] [facility] [place] [address] [place] [address] 04/21/2021 00:00:00 04/21/2021 09:09:51 [id number] [facility] [place] [address] [place] [address] 06/06/2021 00:00:00 06/29/2021 00:50:39 [id number] [facility] [place] [address] [place] [address] 02/15/2022 00:00:00 02/16/2022 09:16:18 [id number] [facility] Pod[facility] [place] [address] [place] [address] 03/22/2022 00:00:00 03/24/2022 11:33:55 [id number] [facility] [place] [address] [place] [address] 04/26/2022 00:00:00 04/27/2022 10:18:58 [id number] [facility] Internal [facility] [place] [address] [place] [address] 06/06/2022 00:00:00 06/29/2022 01:03:58 [id number] Shari Melvin MD [facility] Endo [place] [address] [place] [address] 10/11/2022 08:55:04 10/11/2022 09:46:19 Polycystic ovary syndrome 775916717 E28.2 Patient wishing to get in the near future. She is not currently on metformin but fasting glucose of 98 mg/dL consistent with impaired glucose- will transition /trial on low dose metformin Er 500 mg daily with dinner. Her testostero ne levels spuriously dropped from 162 ng/dL down to 89 ng/dL-off OCP therapy since November 2021- will not trial on spironolac tone as this is teratogeni c. Send for full repeat hormone panel to assess response to therapy. Studies have found a decrease of 300- calories daily, along with 150 minutes of exercise per week, can cause ovulation. Patient was encouraged to continue to maintain diet but not to go toward an extreme form of ketogenic diet. Recommende d up to 60 grams of carbs a day split into 6 small 10 gram carb meals or three larger 20 gram carb meals in addition to up to 70 grams of protein daily split into 10-15 grams for 5-6 smaller meals. The recommende d diet should be one of which she can incorporat e on a daily basis that will not modulate her lifestyle - discussed a diet of increased fiber; decreased refined carbohydra santos, trans fats, and saturated fats with focus on monounsatu rated fats such as unprocesse d chicken, turkey, nuts (excluding peanuts) and beans. Hypothyroidism 67472335 E03.9 FT4 low range- started on LT4 however on bottle states to separate by 15 minutes with food and levothyrox ine. Will transition to synthroid 25 mcg daily as this has best consistenc y. She was reminded to take her synthroid on empty stomach with glass of water and wait one hour to eat or have her coffee in morning and up to 4 hours if ever taking any heartburn or reflux medication s to help optimize absorption . Discussed paleo like diet with restrictio n of GMOs to help with energy and to optimize absorption of vitamins and minerals and reduce inflammati on. Vitamin D deficiency 347 54151 E55.9 Restart on vitamin D 50 once weekly- resend for levels as goal of 50 ng/mL- she was as low as 11.5 ng/mL. Goiter 8894476 E04.9 Will send for baseline thyroid ultrasound as she does have a palpable thyroid and repeat thyroid function panel to assess function. Weight gain 2885494 R63. 5 Will send for low dose dexa suppressio n testing to screen for hypercorti solic state. Spent up to 45 minutes preparing to see the patient (eg, review of tests), obtaining and/or reviewing separately obtained history, performing a medically appropriat e examinatio n and evaluation , counseling and educating the patient, ordering medication s, tests, along with documentin g clinical informatio n in the electronic health record, independen tly interpreti ng results and communicat ing results to the patient. RTC in 3-4 months. Patient was provided a handwritte n lab order which contains our fax number. If she chooses to go outside of the [facility] system to obtain labwork she was advised to provide our fax number and my informatio n to the lab she will be obtaining labwork from in order to have her labs properly forwarded over for me to review so there is no loss of follow up due to use of outside network. She was also advised to contact our clinic informing us that she has completed her labwork so we are aware we will need to reach out to the appropriat e laboratory to request her results be forwarded to us so I might have the ability to review and make further medical decision making in her case. She voiced understand ing. Thank you for this consultati on. [id number] Sher Spence DPM [facility] [place] [address] [place] [address] 10/29/2022 16:12:00 10/29/2022 17:01:52 Bilateral plantar fasciitis 8210035342 0105082 M72.2 Rx physical therapyRec ommend continuing supportive shoe gear and insolesRec ommend stretching and icing dailyFollo w-up in 2 weeks for injections [id number] Sher Spence DPM [facility] [place] [address] [place] [address] 11/12/2022 17:41:47 11/13/2022 09:41:32 Bilateral plantar fasciitis [id number] [id number] M72.2 Rx physical therapy - has not startedcon tinue at-home therapybil ateral heel injections today 5-15Recomm end continuing supportive shoe gear and insolesfol low-up after she has finished physical therapy Health Concerns Section Related Observation LastModified by Organization Detai ls LastModified Time None Recorded Concern Status LastModified by Organization Details LastModified Time None Recorded Advance Directives Directive N: Payers Encounter Date Sequence Insurance Name Policy Number Policy Amezcua Covered Member ID Amezcua Member ID Guarantor Name 10/11/2022 1 [facility] [id number] Barbara N Santy [id number] Barbara N Santy 10/29/2022 1 [facility] [id number] Barbara N Santy [id number] Barbara N Santy 11/12/2022 1 [facility] [id number] Barbara N Santy [id number] Barbara N Santy Notes Date Note Type Note Provider Name and Address Organization Details Recorded Time 2 text/html Anxiety/DepressionRepor bryan bypatient.Severity:gosia es suicidal ideations; able to maintain relationships; does not interfere with activities of daily living Context:no major life stressors Associated Symptoms:denies homicidal ideations; no significant weight gain; no significant weight loss; no visual/auditory hallucinations; no delusions; no shortness of breath; mood good; no anxiety; no crying spells; no panic; no isolation; sleeping well; appetite good; energy good; no apathy; maintaining functionality Not Available [facility] 06/29/2022 01:03:58 3 text/html 26 yo female comes in as referral by courtesy of Oksana ARIAS for management and evaluation of irregular cycles consistent with PCOS and early hypothyroidism. Up until one year ago she was taking control. She was has been trying to get for the past year now as she is not ovulating. Her medical instructor has tried different medications to help with ovulation. She has been to fertility specialists but wants to avoid IVF for now if she can. She is currently on levothyroxine 25 mcg daily and taking with water only labs from 06/09/22:testosterone 162 ng/dL down to 89 ng/dL from [facility] normalprogesterone low <0.5 ng/mL now up to 0.1 ng/mL from Aug 2022LH high / FSH low >2:1 ratioestradiol 77 pg/mLTSH of 3.97 uIU/ml and at 3.922 mIU/LFT4 of 1.2 ng/dL up from 0.91 ng/dLglucose 98 mg/dLinsulin 16 uU/ml vit D 11.5 ng/mL from Aug 2022-she was taking vitamin D 20098 IU once weekly Shari Melvin MD [address], [address], [facility] 10/11/2022 09:52:48 3 text/html . Patient is a 26-year-old female obese who presents to the office with complaints of bilateral plantar fasciitis. Patient states she has had 2 injections on the right heel and 1 on the left. Patient states that she has not had any physical therapy but does at times where orthotics. Patient has [employer] orth[facility] at home and presents in [facility] today. Patient states she is has pain when she gets up from rest or sleeping. Patient states after a 1st couple steps she has less pain and then the pain comes back as a dull achy throbbing pain. Patient states that when she rests it does feel better. Patient states she does not stretch daily. Patient states she is also not icing. Patient denies any other pedal complaints. Sher Spence DPM [address], [facility] [address], [place], [id number], [facility] [employer] 10/29/2022 16:56:00 3 text/html . Patient is a 27-year-old female who presents the office with complaints of bilateral heel pain. Patient presents for bilateral heel injections today. Patient states she is not coming trip and will be doing some walking and like repeat injection as this significantly helped. Patient denies for signs of infection to the area. Patient denies any other complaints. Sher Spence DPM [address], [facility] [address], [place], [id number], [facility] [employer] 11/13/2022 08:50:53 OBGyn Episode No OBEpisode recorded.
== END 2024-09-30 13:04 | disposition home or self-care (01) ==
LOC: ANHLAB 13:05
PROVIDERS: PCP Nurse Practitioner Family; Visit Provider Obstetrics & Gynecology
DX: R35.0 Frequency of micturition (principal)
CPT/HCPCS: 81001; 87086